=== PATIENT | male | born 1965 | race African-American/Black ===

== ENCOUNTER 2016-06-01 07:21 | Day surgery (SDC) | payer MEDICARE, BC ==
[~2016-06-01] VITALS: Ht 165.1 cm; Wt 53.1 kg
--- NOTE | 2016-06-01 06:55 | HP ---
ADMIT DATE: 06/01/2016 HISTORY OF PRESENT ILLNESS: The patient is referred by Dr. Rasta Lerma because of left bloody nipple discharge. The patient states that this has been going on for sometimes. He has had gynecomastia but not had this bleeding. Not sure exactly how long this has been going on. He did have a mammogram which showed prominent masses and ducts in the left breast and has gynecomastia on the right. Sonogram showed the same. The patient is referred now for treatment of this. PAST MEDICAL HISTORY: Shows normal childhood diseases. It is significant in that he has been on dialysis for about 32 years and has had a kidney transplant which worked for a while but does not anymore and now he is on hemodialysis with his right arm. The patient otherwise is doing relatively well. ALLERGIES: He does have allergies to IODINE, VANCOMYCIN, AND HYDRALAZINE. PAST SURGICAL HISTORY: Otherwise was related to the surgery of the kidney transplant, etc. FAMILY HISTORY: Noncontributory. It should be noted that he does take medicine for his heart and has been on warfarin, but is not on it now and only takes aspirin per day now. SOCIAL HISTORY: Shows he has 2 children, alive and well. They are in their 20s. He used to smoke casually, not any more. He does not drink and does not use illicit drugs. PHYSICAL EXAMINATION: GENERAL: Shows an alert male, small stature, in no acute distress. HEAD, EYES, NOSE, AND THROAT: Grossly normal. LUNGS: Clear bilaterally to auscultation. HEART: About a 2/3 systolic murmur heard, greatest at the mitral valve area. It was not heard at the aortic area. EXTREMITIES: Negative except for the scars of previous surgery and the dilated veins of the right arm where he has dialysis. Grossly normal except for the right upper extremity. ABDOMEN: Grossly normal, no organomegaly, no hernias noted. BREASTS: Examination of the right breast shows a mass which appears to be soft and round and I think it is gynecomastia. On the left, there is bloody nipple discharge coming out of the nipple with a drop or two, and he does have a mass there. There is no tenderness, but is hard, more firm and did not feel like the gynecomastia on the right. IMPRESSION: 1. End-stage renal failure. 2. Gynecomastia. 3. Mass, left breast with discharge. 4. Heart murmur, etiology and consequence not determined. ROYER HADDAD MD DR: DEION/lelo JOB#: [id number] / [id number]
[~2016-06-01 07:21] MED LIST: ASPI-482 PO; CALC667C6 PO; CARV12.52 PO; CEPH-264 PO; CEPH500C PO; FENTANYL PF 100 MCG/2 ML VIAL. IV PRN; HYDROMORPHONE 2 MG/ML VIAL. IV PRN; IV RINGERS,LACTATED 1000ML 1,000 ML IV SCH; LIDOCAINE 1% 1 ML SYRINGE. ID PRN; METO25TA2 PO; METO25TA9 PO; MORPHINE SULFATE 2 MG/ML DISP.SYRIN. IV PRN; ONDANSETRON PF 4 MG/2 ML VIAL. IV PRN; OXYC-250 PO; PROCHLORPERAZINE 10 MG/2 ML VIAL. IV PRN; VIT1CAPS PO; VIT1TABL57 PO; WARF10TA6 PO
[2016-06-01] MEDS ORDERED: FAMOTIDINE 20 MG/2 ML VIAL ONE (07:33)
[2016-06-01] MEDS ORDERED: FENTANYL PF 100 MCG/2 ML VIAL. ONE (07:33)
[2016-06-01] MEDS ORDERED: PROPOFOL 20 ML IV ONE (07:33)
[2016-06-01] MEDS ORDERED: ROCURONIUM 50 MG/5 ML VIAL. ONE (07:33)
[2016-06-01] MEDS ORDERED: LIDOCAINE 2% 100 MG/5 ML DISP.SYRIN. ONE (07:33)
[2016-06-01] MEDS ORDERED: ONDANSETRON PF 4 MG/2 ML VIAL. ONE (07:33)
[2016-06-01] MEDS ORDERED: CEFAZOLIN 1GM IVPB FOR OMNI 50 ML IV ONE (08:00)
[2016-06-01] MEDS ORDERED: IV NORMAL SALINE 1000ML BAG 1,000 ML IV SCH (08:45)
--- NOTE | 2016-06-01 08:46 | PDOC ---
SURGICAL PROGRESS NOTE Subjective No new changes in dictated H+P Vital Signs Vital Signs Date Time Temp Pulse Resp B/P Pulse Ox O2 Delivery O2 Flow Rate FiO2 06/01/16 08:34 98.0 62 18 140/84 100 Room Air 98.0 ROYER HADDAD MD Jun 01, 2016 08:46
--- NOTE | 2016-06-01 08:47 | PDOC ---
SURGICAL PROGRESS NOTE Subjective Surgeon.....................................Scar Pre-op diagnosis..........................left breast mass with discharge Post-op diagnosis.......................LEFT BREAST MASS Anesthesia.................................general procedure...................................left MALE mastectomy drains........................................1/4 INCH PEARL blood loss..................................20CC fluids.........................................see anesthesia condition...................................satisfactory Vital Signs Vital Signs Date Time Temp Pulse Resp B/P Pulse Ox O2 Delivery O2 Flow Rate FiO2 06/01/16 08:34 98.0 62 18 140/84 100 Room Air 98.0 ROYER HADDAD MD Jun 01, 2016 08:47
[2016-06-01 08:55] LABS: BASO % 1 % (0-3); EOS % 1 % (0-3); HEMATOCRIT 40.5 % (39.0-53.0); HEMOGLOBIN 12.9 g/dL (13.0-17.5); LYMPH # 0.6 x10^3/uL (1.0-4.8); LYMPH % 11 % (24-48); MEAN CORPUSCULAR HEMOGLOBIN 33 pg (25-35); MEAN CORPUSCULAR HGB CONC 32 g/dL (31-37); MEAN CORPUSCULAR VOLUME 104 fL (79-100); MONO % 6 % (0-9); NEUT % 81 % (31-73); PLATELET COUNT 128 x10^3/uL (140-400); RED BLOOD COUNT 3.88 x10^6/uL (4.30-5.70); RED CELL DISTRIBUTION WIDTH 17.3 % (11.5-14.5); WHITE BLOOD COUNT 5.5 x10^3/uL (4.0-11.0)
[2016-06-01 09:10] LABS: CREATININE 6.1 mg/dL (0.7-1.3); GFR 11.9; POTASSIUM 3.8 mmol/L (3.5-5.1)
[2016-06-01 09:13] LABS: ALBUMIN 3.6 g/dL (3.4-5.0); ALBUMIN/GLOBULIN RATIO 0.7 (1.0-1.7); TOTAL BILIRUBIN 0.5 mg/dL (0.2-1.0); TOTAL PROTEIN 8.7 g/dL (6.4-8.2)
[2016-06-01] MEDS ORDERED: GLYCOPYRROLATE 1 MG/5 ML VIAL. ONE ×2 (10:33→10:34)
[2016-06-01] MEDS ORDERED: NEOSTIGMINE METHYLSULFATE 5 MG/5 ML SYRINGE. ONE (10:34)
[2016-06-01] MEDS ORDERED: SEVOFLURANE 31 TO 60 MINUTES. IH ONE (10:34)
[2016-06-01] MEDS: FENTANYL PF 100 MCG/2 ML VIAL. IV PRN ×2 (11:27→11:46)
[2016-06-01] MEDS ORDERED: HYDROCODONE/APAP 5/325MG TABLET. PO ONE (11:45)
[2016-06-01] MEDS ORDERED: HYDR-2762 PO (11:58)
[2016-06-01 12:45] VITALS: BP 114/65
--- NOTE | 2016-06-02 01:21 | OP ---
DATE OF SURGERY: SURGEON: Fili Haddad MD PREOPERATIVE DIAGNOSIS: Tumor, left breast. Etiology not determined with nipple discharge. POSTOPERATIVE DIAGNOSIS: Tumor, left breast. Etiology not determined with nipple discharge. ANESTHESIA: General. PROCEDURE: Excision of male breast on the left. ANESTHESIA: General. TECHNIQUE: Under general anesthesia, the patient was properly prepped and draped in routine fashion. The patient had a mass of the left breast laterally. He also had blood in nipple discharge. As such, I spoke with him, and he understood we may remove the mass and the whole breast if we could not get the mass out without that. As such, an incision was made in circumareolar fashion from the 9 o'clock to the 3 o'clock position and then taken laterally about a couple of inches. We did this with a 15 blade. We then went through the skin into the subcutaneous. We then used Metzenbaum scissors and also Silvia retractors to retract away the skin edges to define the mass and the breast tissue. The mass was dark in color and with the inferior lateral portion of the left breast. As such, it did not make sense to leave this in, and so we decided we remove the whole breast since it was not very big being a male breast. We then used Metzenbaum scissors and cautery to divide the breast tissue and the mass from the surrounding tissues. There was more bleeding than normal as the patient is a dialysis patient. We had to cauterize some of the bleeders from the pectoralis muscle and also suture ligated one artery coming in laterally. We then slowly removed the breast and then on the underside of the nipple, I excised the breast so that there would be enough tissue, so it would not have gangrene there. As such, we slowly removed all of the breast tissue totally and then sent it to the lab. The resultant defect was inspected. Because of the space, we decided to put a quarter-inch Chandrika drain there. We then sutured the nipple down to the pectoralis major muscle and then had the drain in place and then closed the subcutaneous with interrupted 4-0 Vicryl, and the skin was closed using a subcuticular 5-0 Vicryl. The procedure was terminated and a sterile dressing was applied. Blood loss was probably 15 to 20 mL. Drain was a quarter-inch Chandrika drain. Fluids given can be obtained from the anesthesia sheet. The condition of the patient is satisfactory as he is returned to the recovery room. FILI HADDAD MD DR: DEION/lelo JOB#: [id number] / [id number]
--- NOTE | 2016-06-03 14:43 | PATHOLOGY ---
PATHOLOGY REPORT * * * * * * * * FINAL DIAGNOSIS: Breast tissue, breast mass excision: - DUCTAL CARCINOMA IN SITU PAPILLARY/CRIBRIFORM TYPE, INTERMEDIATE GRADE. - DCIS IS WITHIN 0.1 CM OF THE CLOSEST INKED MARGIN. - Gynecomastia. Clinical History: Palpable mass Radiologic Finding: Radiologic finding, Other: Unknown Procedure: Excision without wire-guided localization Lymph Node Sampling: No lymph nodes present Specimen Laterality: Left Tumor Site: Not specified: . Size of DCIS: Estimated Size (extent) of DCIS is at least: 30 mm Number of blocks with DCIS: 3 Number of blocks examined: 6 Histologic Type: Ductal carcinoma in situ. Classified as Tis (DCIS) or Tis (Paget). Architectural Patterns: Cribriform Papillary Nuclear Grade: Grade II (intermediate) Necrosis: Not identified: . Margins: Margins uninvolved by DCIS Distance from closest margin is < 1 mm Distance from closest margin cannot be assessed: Specimen not oriented. Treatment Effect: No known presurgical therapy Microcalcifications: Not identified: . Lymph Nodes: Lymph nodes not present in the specimen Micro / Macro Metastases Dudley Nodes: Dudley lymph node biopsy not performed Estrogen Receptor: Pending: . Progesterone Receptor: Pending: . Primary Tumor (pT): pTis: Ductal carcinoma in situ Regional Lymph Nodes (pN): Category (pN): pNX: Regional lymph nodes cannot be assessed Distant Metastasis (pM): Not applicable: . Additional Pathologic Findings: Gynecomastia. COMMENT: Sections of the left breast mass excision show intermediate grade ductal carcinoma in situ of papillary/cribriform type arising within a background of gynecomastia. DCIS in multiple foci is within 0.1 cm of the closest inked margin. DCIS measures up to 3.0 cm and is present in three of the six tissue blocks. There is no evidence of invasive carcinoma. Breast prognostic studies will be obtained, the results of which will be reported separately. The case is also examined by Dr. Mona Ochoa, who concurs with the diagnosis. (EVANSM:; d/t: 06/02/16) REPORT ELECTRONICALLY SIGNED BY: Kimo Douglas M.D. DATE/TIME: 06/03/2016 14:42 * * * * * * * * GROSS PATHOLOGY: The specimen is received in formalin labeled "Isac Ohara left breast mass". Received is a 15 g unoriented segment of yellow-severino fibroadipose tissue measuring 6.1 x 4.1 x 1.2 cm in greatest dimensions. The surgical margin is inked. Sectioning reveals pink-severino to white-severino, fibrous cut surfaces displaying several cystic-like structures ranging in size from 0.2 to 0.5 cm filled with clear mucoid material. The specimen is submitted representatively in cassettes A1 through A6. The cold ischemic time and time in formalin are not provided. The time out of formalin is 9:51 PM on 06/04/2016. (CAA; 06/01/2016) INITIAL CPT CODE(S): A; 78087, 34372(2) Professional services performed [place] [facility] [place] [address] Technical services performed by [facility] at [address] [place] [address] [address] [address]. SPECIMEN(S) RECEIVED: A.Left breast mass CLINICAL HISTORY: Left breast mass with discharge, gynecomastia PATIENT: ISAC OHARA /AGE: 104/12/1965 (Age: 51) PATIENT #: [id number] ALT CASE #: SPECIMEN COLLECTION DATE: 06/01/2016 SPECIMEN RECEIVED DATE: 06/01/2016 [facility] - [address] [place] [address] - PHONE: [phone] * * * END OF REPORT * * *
== END 2016-06-01 13:34 | disposition home or self-care (01) ==
LOC: SURG 07:21 → MERGE 09:00 → SURG 13:34
PROVIDERS: ATTEND Specialist
DX: D49.3 Neoplasm of unspecified behavior of breast (principal); N64.52 Nipple discharge; N62 Hypertrophy of breast; I10 Essential (primary) hypertension; F41.9 Anxiety disorder, unspecified; Z90.49 Acquired absence of other specified parts of digestive tract; Z87.442 Personal history of urinary calculi; Z79.01 Long term (current) use of anticoagulants
CPT/HCPCS: 19303; 36415; 80053; 85027; 85610; J0690; J2405; J2704; J2710; J3010; J3490; S0028

== ENCOUNTER 2016-07-13 09:57 | Day surgery (SDC) | payer MEDICARE ==
--- NOTE | 2016-07-12 17:21 | PREOP HP ---
DATE OF SERVICE: 07/13/2016 HISTORY OF PRESENT ILLNESS: The history has not changed from his previous surgery other than he in fact did have an excision of a right breast mass, which proved to be carcinoma in situ. We went over the results and the pathology and this is what he has. He is still on dialysis and has all of the same problems that he had previously. We did contact an oncologist and they suggested a simple mastectomy, not any axillary dissection or sentinel node biopsy. As such, this is what is plan. PAST MEDICAL HISTORY: Shows normal childhood diseases. He has been on hemodialysis for 32 years and has had kidney transplant once or twice. Apparently, he had dialysis presently. Otherwise, he is alert and doing well. ALLERGIES: HE IS ALLERGIC TO IODINE, VANCOMYCIN, AND HYDRALAZINE. PAST SURGICAL HISTORY: Includes kidney transplant and also excision of a left breast mass and multiple procedures for hemodialysis access. FAMILY HISTORY: Basically noncontributory. MEDICATIONS: He does take medicines for his heart, had been on warfarin, but is not on it now and has stopped the aspirin also. SOCIAL HISTORY: Shows that he has had two children, who are in their 20s now. He used to smoke casually, but not anymore. He does not drink and does not use illicit drugs. PHYSICAL EXAMINATION: GENERAL: Shows an alert male, in no acute distress. HEAD, EYES, EARS, NOSE, AND THROAT: Grossly normal. CHEST: Clear bilaterally to auscultation. HEART: Still had 3/6 systolic murmur heard greatest at the mitral area. EXTREMITIES: Were negative except for the large right arm secondary to the hemodialysis and the venous engorgement. Otherwise, unremarkable. ABDOMEN: Was negative and the breast unremarkable except for a gynecomastia on the right and on the left, he has a scar of the previous surgery. IMPRESSION: 1. Renal failure. 2. In situ cancer of the left breast. ROYER HADDAD MD DR: DEION/lelo JOB#: [id number] / [id number]
[~2016-07-13 09:57] MED LIST changes: +ALPR1TAB6 PO; +CLON2TAB2 PO; +DIPH25CA58 PO; +HYDR-2762 PO; +IV NORMAL SALINE 1000ML BAG 1,000 ML IV ONE; -MORPHINE SULFATE 2 MG/ML DISP.SYRIN. IV PRN; +SEVE800T9 PO
[2016-07-13] MEDS ORDERED: FAMOTIDINE 20 MG/2 ML VIAL ONE (10:11)
[2016-07-13] MEDS ORDERED: LIDOCAINE 2% 100 MG/5 ML SYRINGE. ONE (10:11)
[2016-07-13] MEDS ORDERED: PROPOFOL 20 ML IV ONE (10:11)
[2016-07-13] MEDS ORDERED: DEXAMETHASONE SOD PHOS 20 MG/5 ML VIAL. ONE (10:11)
[2016-07-13] MEDS ORDERED: ONDANSETRON PF 4 MG/2 ML VIAL. ONE (10:11)
[2016-07-13] MEDS ORDERED: FENTANYL PF 100 MCG/2 ML VIAL. ONE (10:14)
[2016-07-13] MEDS ORDERED: ROCURONIUM 50 MG/5 ML VIAL. ONE (10:14)
[2016-07-13 10:47] LABS: BASO % 1 % (0-3); EOS % 1 % (0-3); HEMATOCRIT 38.9 % (39.0-53.0); HEMOGLOBIN 13.3 g/dL (13.0-17.5); LYMPH # 0.7 x10^3/uL (1.0-4.8); LYMPH % 13 % (24-48); MEAN CORPUSCULAR HEMOGLOBIN 34 pg (25-35); MEAN CORPUSCULAR HGB CONC 34 g/dL (31-37); MEAN CORPUSCULAR VOLUME 100 fL (79-100); MONO % 8 % (0-9); NEUT % 77 % (31-73); PLATELET COUNT 128 x10^3/uL (140-400); RED BLOOD COUNT 3.89 x10^6/uL (4.30-5.70); RED CELL DISTRIBUTION WIDTH 15.4 % (11.5-14.5); WHITE BLOOD COUNT 5.3 x10^3/uL (4.0-11.0)
[2016-07-13 10:55] LABS: CALCIUM 8.7 mg/dL (8.5-10.1); POTASSIUM 4.4 mmol/L (3.5-5.1)
[2016-07-13 11:02] LABS: ALBUMIN 3.3 g/dL (3.4-5.0); ALBUMIN/GLOBULIN RATIO 0.7 (1.0-1.7); CREATININE 6.8 mg/dL (0.7-1.3); GFR 10.5; TOTAL BILIRUBIN 0.4 mg/dL (0.2-1.0); TOTAL PROTEIN 8.3 g/dL (6.4-8.2)
--- NOTE | 2016-07-13 11:08 | PDOC ---
SURGICAL PROGRESS NOTE Subjective No change in dictated H&P. Vital Signs Vital Signs Date Time Temp Pulse Resp B/P Pulse Ox O2 Delivery O2 Flow Rate FiO2 07/13/16 10:37 98.5 78 97 98.5 07/13/16 10:31 99/62 07/13/16 10:27 20 Labs Laboratory Tests Test 07/13/16 10:32 White Blood Count 5.3x10^3/uL (4.0-11.0) Red Blood Count 3.89x10^6/uL (4.30-5.70) Hemoglobin 13.3g/dL (13.0-17.5) Hematocrit 38.9% (39.0-53.0) Mean Corpuscular Volume 100fL (79-100) Mean Corpuscular Hemoglobin 34pg (25-35) Mean Corpuscular Hemoglobin Concent 34g/dL (31-37) Red Cell Distribution Width 15.4% (11.5-14.5) Platelet Count 128x10^3/uL (140-400) Neutrophils (%) (Auto) 77% (31-73) Lymphocytes (%) (Auto) 13% (24-48) Monocytes (%) (Auto) 8% (0-9) Eosinophils (%) (Auto) 1% (0-3) Basophils (%) (Auto) 1% (0-3) Neutrophils # (Auto) 4.1x10^3uL (1.8-7.7) Lymphocytes # (Auto) 0.7x10^3/uL (1.0-4.8) Monocytes # (Auto) 0.4x10^3/uL (0.0-1.1) Eosinophils # (Auto) 0.1x10^3/uL (0.0-0.7) Basophils # (Auto) 0.0x10^3/uL (0.0-0.2) Sodium Level 139mmol/L (136-145) Potassium Level 4.4mmol/L (3.5-5.1) Chloride Level 101mmol/L (98-107) Carbon Dioxide Level 29mmol/L (21-32) Anion Gap 9 (6-14) Blood Urea Nitrogen 13mg/dL (8-26) Creatinine 6.8mg/dL (0.7-1.3) Estimated GFR (Cockcroft-Gault) 10.5 BUN/Creatinine Ratio 2 (6-20) Glucose Level 92mg/dL (70-99) Calcium Level 8.7mg/dL (8.5-10.1) Total Bilirubin 0.4mg/dL (0.2-1.0) Aspartate Amino Transf (AST/SGOT) 12U/L (15-37) Alanine Aminotransferase (ALT/SGPT) 13U/L (16-63) Alkaline Phosphatase 137U/L (46-116) Total Protein 8.3g/dL (6.4-8.2) Albumin 3.3g/dL (3.4-5.0) Albumin/Globulin Ratio 0.7 (1.0-1.7) Laboratory Tests Test 07/13/16 10:32 White Blood Count 5.3x10^3/uL (4.0-11.0) Red Blood Count 3.89x10^6/uL (4.30-5.70) Hemoglobin 13.3g/dL (13.0-17.5) Hematocrit 38.9% (39.0-53.0) Mean Corpuscular Volume 100fL (79-100) Mean Corpuscular Hemoglobin 34pg (25-35) Mean Corpuscular Hemoglobin Concent 34g/dL (31-37) Red Cell Distribution Width 15.4% (11.5-14.5) Platelet Count 128x10^3/uL (140-400) Neutrophils (%) (Auto) 77% (31-73) Lymphocytes (%) (Auto) 13% (24-48) Monocytes (%) (Auto) 8% (0-9) Eosinophils (%) (Auto) 1% (0-3) Basophils (%) (Auto) 1% (0-3) Neutrophils # (Auto) 4.1x10^3uL (1.8-7.7) Lymphocytes # (Auto) 0.7x10^3/uL (1.0-4.8) Monocytes # (Auto) 0.4x10^3/uL (0.0-1.1) Eosinophils # (Auto) 0.1x10^3/uL (0.0-0.7) Basophils # (Auto) 0.0x10^3/uL (0.0-0.2) Sodium Level 139mmol/L (136-145) Potassium Level 4.4mmol/L (3.5-5.1) Chloride Level 101mmol/L (98-107) Carbon Dioxide Level 29mmol/L (21-32) Anion Gap 9 (6-14) Blood Urea Nitrogen 13mg/dL (8-26) Creatinine 6.8mg/dL (0.7-1.3) Estimated GFR (Cockcroft-Gault) 10.5 BUN/Creatinine Ratio 2 (6-20) Glucose Level 92mg/dL (70-99) Calcium Level 8.7mg/dL (8.5-10.1) Total Bilirubin 0.4mg/dL (0.2-1.0) Aspartate Amino Transf (AST/SGOT) 12U/L (15-37) Alanine Aminotransferase (ALT/SGPT) 13U/L (16-63) Alkaline Phosphatase 137U/L (46-116) Total Protein 8.3g/dL (6.4-8.2) Albumin 3.3g/dL (3.4-5.0) Albumin/Globulin Ratio 0.7 (1.0-1.7) ROYER HADDAD MD Jul 13, 2016 11:08
--- NOTE | 2016-07-13 11:11 | PDOC ---
SURGICAL PROGRESS NOTE Subjective Op Note: Surgeon............................................Scar Pre op diag.......................................cancer left breast Post op diag.....................................same Anesthesia.......................................general Procedure........................................simple mastectomy on left Drains..............................................#15 Ashwin drain Fluids..............................................see anesthesia sheet Blood loss.......................................15cc Condition.........................................fair Vital Signs Vital Signs Date Time Temp Pulse Resp B/P Pulse Ox O2 Delivery O2 Flow Rate FiO2 07/13/16 10:37 98.5 78 97 98.5 07/13/16 10:31 99/62 07/13/16 10:27 20 Labs Laboratory Tests Test 07/13/16 10:32 White Blood Count 5.3x10^3/uL (4.0-11.0) Red Blood Count 3.89x10^6/uL (4.30-5.70) Hemoglobin 13.3g/dL (13.0-17.5) Hematocrit 38.9% (39.0-53.0) Mean Corpuscular Volume 100fL (79-100) Mean Corpuscular Hemoglobin 34pg (25-35) Mean Corpuscular Hemoglobin Concent 34g/dL (31-37) Red Cell Distribution Width 15.4% (11.5-14.5) Platelet Count 128x10^3/uL (140-400) Neutrophils (%) (Auto) 77% (31-73) Lymphocytes (%) (Auto) 13% (24-48) Monocytes (%) (Auto) 8% (0-9) Eosinophils (%) (Auto) 1% (0-3) Basophils (%) (Auto) 1% (0-3) Neutrophils # (Auto) 4.1x10^3uL (1.8-7.7) Lymphocytes # (Auto) 0.7x10^3/uL (1.0-4.8) Monocytes # (Auto) 0.4x10^3/uL (0.0-1.1) Eosinophils # (Auto) 0.1x10^3/uL (0.0-0.7) Basophils # (Auto) 0.0x10^3/uL (0.0-0.2) Sodium Level 139mmol/L (136-145) Potassium Level 4.4mmol/L (3.5-5.1) Chloride Level 101mmol/L (98-107) Carbon Dioxide Level 29mmol/L (21-32) Anion Gap 9 (6-14) Blood Urea Nitrogen 13mg/dL (8-26) Creatinine 6.8mg/dL (0.7-1.3) Estimated GFR (Cockcroft-Gault) 10.5 BUN/Creatinine Ratio 2 (6-20) Glucose Level 92mg/dL (70-99) Calcium Level 8.7mg/dL (8.5-10.1) Total Bilirubin 0.4mg/dL (0.2-1.0) Aspartate Amino Transf (AST/SGOT) 12U/L (15-37) Alanine Aminotransferase (ALT/SGPT) 13U/L (16-63) Alkaline Phosphatase 137U/L (46-116) Total Protein 8.3g/dL (6.4-8.2) Albumin 3.3g/dL (3.4-5.0) Albumin/Globulin Ratio 0.7 (1.0-1.7) Laboratory Tests Test 07/13/16 10:32 White Blood Count 5.3x10^3/uL (4.0-11.0) Red Blood Count 3.89x10^6/uL (4.30-5.70) Hemoglobin 13.3g/dL (13.0-17.5) Hematocrit 38.9% (39.0-53.0) Mean Corpuscular Volume 100fL (79-100) Mean Corpuscular Hemoglobin 34pg (25-35) Mean Corpuscular Hemoglobin Concent 34g/dL (31-37) Red Cell Distribution Width 15.4% (11.5-14.5) Platelet Count 128x10^3/uL (140-400) Neutrophils (%) (Auto) 77% (31-73) Lymphocytes (%) (Auto) 13% (24-48) Monocytes (%) (Auto) 8% (0-9) Eosinophils (%) (Auto) 1% (0-3) Basophils (%) (Auto) 1% (0-3) Neutrophils # (Auto) 4.1x10^3uL (1.8-7.7) Lymphocytes # (Auto) 0.7x10^3/uL (1.0-4.8) Monocytes # (Auto) 0.4x10^3/uL (0.0-1.1) Eosinophils # (Auto) 0.1x10^3/uL (0.0-0.7) Basophils # (Auto) 0.0x10^3/uL (0.0-0.2) Sodium Level 139mmol/L (136-145) Potassium Level 4.4mmol/L (3.5-5.1) Chloride Level 101mmol/L (98-107) Carbon Dioxide Level 29mmol/L (21-32) Anion Gap 9 (6-14) Blood Urea Nitrogen 13mg/dL (8-26) Creatinine 6.8mg/dL (0.7-1.3) Estimated GFR (Cockcroft-Gault) 10.5 BUN/Creatinine Ratio 2 (6-20) Glucose Level 92mg/dL (70-99) Calcium Level 8.7mg/dL (8.5-10.1) Total Bilirubin 0.4mg/dL (0.2-1.0) Aspartate Amino Transf (AST/SGOT) 12U/L (15-37) Alanine Aminotransferase (ALT/SGPT) 13U/L (16-63) Alkaline Phosphatase 137U/L (46-116) Total Protein 8.3g/dL (6.4-8.2) Albumin 3.3g/dL (3.4-5.0) Albumin/Globulin Ratio 0.7 (1.0-1.7) ROYER HADDAD MD Jul 13, 2016 11:11
[2016-07-13 11:28] LABS: INR 1.1 (0.8-1.1); PROTHROMBIN TIME PATIENT 13.5 SEC (11.7-14.0)
[2016-07-13] MEDS ORDERED: CEFAZOLIN 1GM IVPB FOR OMNI 50 ML IV ONE (11:33)
[2016-07-13] MEDS ORDERED: PHENYLEPHRINE in 0.9% NACL PF 1 MG/10 ML DISP.SYRIN. IV ONE (11:42)
[2016-07-13] MEDS ORDERED: GLYCOPYRROLATE 1 MG/5 ML VIAL. ONE (12:00)
[2016-07-13] MEDS ORDERED: NEOSTIGMINE METHYLSULFATE 5 MG/5 ML SYRINGE. ONE (12:00)
[2016-07-13] MEDS ORDERED: SEVOFLURANE 61 TO 120 MINUTES. IH ONE (12:26)
[2016-07-13] MEDS: FENTANYL PF 100 MCG/2 ML VIAL. IV PRN ×4 (12:48→13:30)
[2016-07-13] MEDS ORDERED: CEFAZOLIN 1GM IVPB FOR OMNI. IV ONE ×2 (13:00→13:49)
[2016-07-13] MEDS ORDERED: HYDROCODONE/APAP 5/325MG TABLET. PO ONE (13:45)
[2016-07-13] MEDS: MORPHINE SULFATE 2 MG/ML DISP.SYRIN. IV PRN ×2 (14:00→14:15)
[2016-07-13] MEDS ORDERED: HYDR-2666 PO (14:12)
--- NOTE | 2016-07-13 14:22 | OP ---
DATE OF SURGERY: 07/13/2016 SURGEON: Fili Haddad MD. PREOPERATIVE DIAGNOSIS: Carcinoma of the left breast. POSTOPERATIVE DIAGNOSIS: Carcinoma of the left breast. ANESTHESIA: General. PROCEDURE: Simple mastectomy. TECHNIQUE: Under general anesthesia, the patient was properly prepped and draped in a routine fashion. A fusiform incision was made in a transverse fashion encompassing the old incision and the nipple. We went around this with a 15-blade making pretty wide margins. We then went completely through the subcutaneous down to the fascia with cautery. We then pulled it up with Mary Ann clamps superiorly and then inferiorly and developed a plane subcutaneous taking all of the breast tissue down to the fascia. We then grasped the tissue to be removed medially and pulled it laterally, and slowly using cautery the tissue from the pectoralis major muscle fascia and taking all of the tissue therein. We slowly removed this. Two to three small bleeders were cauterized, and we slowly removed the mass, and we did not enter the previous surgical site. We completely removed this and sent it to the lab after we put 2-0 silk suture in the lateral aspect of it. We then developed flaps as stated before superiorly and medially and laterally and inferiorly. We then placed a 15-Ashwin drain, brought it out through a stab wound, and sutured it in place using 2-0 silk. We then cut the catheter, so it fit into this area where the wound was going to be closed, and we irrigated the wound with sterile water and then approximated the subcutaneous and deep dermis using interrupted 4-0 and 3-0 Vicryl. The skin was closed using skin stapler, and the procedure was terminated as a sterile dressing was applied. The appropriate apparatus was placed on the catheter, and the bulb was then tied in place using #1 silk suture. This having been done, the procedure was terminated. Sterile dressing was applied. Blood loss was probably 10 mL or so. Fluids given can be obtained from the anesthesia sheet. The drain was a 15-Ashwin drain, and the condition of the patient is satisfactory as he was returned to the Recovery Room. FILI HADDAD MD DR: DEION/lelo JOB#: [id number] / [id number]
[2016-07-13 14:49] VITALS: BP 126/54
== END 2016-07-13 15:18 | disposition home or self-care (01) ==
LOC: SURG 09:57
PROVIDERS: ATTEND Specialist
DX: C50.922 Malignant neoplasm of unspecified site of left male breast (principal); I10 Essential (primary) hypertension; F41.9 Anxiety disorder, unspecified; Z90.49 Acquired absence of other specified parts of digestive tract; Z87.442 Personal history of urinary calculi; Z79.01 Long term (current) use of anticoagulants
CPT/HCPCS: 19303; 36415; 80053; 85027; 85610; J0690; J0780; J1100; J2270; J2370; J2405; J2704; J2710; J3010; J3490; S0028

== ENCOUNTER → 2017-02-03 | Day surgery (SDC) | payer MEDICARE ==
[~2017-02-03] MED LIST changes: -ALPR1TAB6 PO; -ASPI-482 PO; -CALC667C6 PO; -CARV12.52 PO; -CEPH-264 PO; -CEPH500C PO; -CLON2TAB2 PO; -DIPH25CA58 PO; -FENTANYL PF 100 MCG/2 ML VIAL. IV PRN; -HYDR-2762 PO; -HYDROMORPHONE 2 MG/ML VIAL. IV PRN; -IV NORMAL SALINE 1000ML BAG 1,000 ML IV ONE; -IV RINGERS,LACTATED 1000ML 1,000 ML IV SCH; -LIDOCAINE 1% 1 ML SYRINGE. ID PRN; +LIDOCAINE 1%/EPI 1:100,000 20 ML VIAL.; -METO25TA2 PO; -METO25TA9 PO; -ONDANSETRON PF 4 MG/2 ML VIAL. IV PRN; -OXYC-250 PO; -PROCHLORPERAZINE 10 MG/2 ML VIAL. IV PRN; -SEVE800T9 PO; -VIT1CAPS PO; -VIT1TABL57 PO; -WARF10TA6 PO
[2017-02-03 09:44] LABS: ADD MAN DIFF? NO
[2017-02-03 09:48] LABS: BASO % 1 % (0-3); EOS % 1 % (0-3); HEMOGLOBIN 13.3 g/dL (13.0-17.5); LYMPH # 0.9 x10^3/uL (1.0-4.8); LYMPH % 17 % (24-48); MEAN CORPUSCULAR HEMOGLOBIN 32 pg (25-35); MEAN CORPUSCULAR HGB CONC 32 g/dL (31-37); MEAN CORPUSCULAR VOLUME 99 fL (79-100); MONO % 7 % (0-9); NEUT % 75 % (31-73); PLATELET COUNT 143 x10^3/uL (140-400); RED BLOOD COUNT 4.14 x10^6/uL (4.30-5.70); RED CELL DISTRIBUTION WIDTH 14.8 % (11.5-14.5); WHITE BLOOD COUNT 5.2 x10^3/uL (4.0-11.0)
[2017-02-03 09:58] LABS: PROTHROMBIN TIME PATIENT 13.1 SEC (11.7-14.0)
[2017-02-03 09:59] LABS: ANION GAP 6 (6-14); BLOOD UREA NITROGEN 12 mg/dL (8-26); BUN/CREATININE RATIO 2 (6-20); CARBON DIOXIDE 35 mmol/L (21-32); CHLORIDE 98 mmol/L (98-107); CREATININE 5.5 mg/dL (0.7-1.3); GFR 13.4; GLUCOSE 110 mg/dL (70-99); POTASSIUM 4.1 mmol/L (3.5-5.1); SODIUM 139 mmol/L (136-145)
[2017-02-03 10:05] LABS: ALBUMIN 3.4 g/dL (3.4-5.0); ALBUMIN/GLOBULIN RATIO 0.6 (1.0-1.7); ALK PHOS 145 U/L (46-116); ALT (SGPT) 14 U/L (16-63); AST (SGOT) 14 U/L (15-37); TOTAL BILIRUBIN 0.4 mg/dL (0.2-1.0); TOTAL PROTEIN 8.7 g/dL (6.4-8.2)
[2017-02-03] MEDS: LIDOCAINE 2%/EPI 1:100,000 20 ML VIAL. IJ ×2 (10:45→11:20)
== END | disposition home or self-care (01) ==
LOC: SURG 09:17
DX: L72.0 Epidermal cyst (principal); L82.1 Other seborrheic keratosis; E07.9 Disorder of thyroid, unspecified; I12.9 Hypertensive chronic kidney disease with stage 1 through stage 4 chronic kidney disease, or unspecified chronic kidney disease; N18.9 Chronic kidney disease, unspecified; F41.9 Anxiety disorder, unspecified; F17.200 Nicotine dependence, unspecified, uncomplicated; Z90.49 Acquired absence of other specified parts of digestive tract; Z98.890 Other specified postprocedural states; Z88.1 Allergy status to other antibiotic agents; Z87.39 Personal history of other diseases of the musculoskeletal system and connective tissue; Z91.041 Radiographic dye allergy status
CPT/HCPCS: 11404; 36415; 80053; 85025; 85610; 88304; 88305; J3490

== ENCOUNTER 2017-11-28 01:44 | Inpatient (IN) | payer MEDICARE ==
[~2017-11-28] VITALS: Ht 165.1 cm; Wt 56.2 kg
[~2017-11-28 01:44] MED LIST changes: +ALPR1TAB6 PO; +ASPI-482 PO; +CALC667C6 PO; +CARV12.52 PO; +CEPH-264 PO; +CEPH500C PO; +CLON2TAB9 PO; +DIPH25CA58 PO; +HYDR-2758 PO; +HYDR-2762 PO; -LIDOCAINE 1%/EPI 1:100,000 20 ML VIAL.; +METO-239 PO; +METO25TA2 PO; +OXYC-328 PO; +SEVE800T9 PO; +VIT1CAPS PO; +VIT1TABL57 PO; +WARF10TA40 PO
[2017-11-28] MEDS ORDERED: ONDANSETRON PF 4 MG/2 ML VIAL. IV ONE (02:30)
[2017-11-28] MEDS ORDERED: MORPHINE SULFATE 10 MG/ML VIAL. ONE (02:32)
[2017-11-28] MEDS ORDERED: MORPHINE SULFATE 10 MG/ML VIAL. IV ONE (02:45)
--- NOTE | 2017-11-28 03:36 | RAD ---
INDICATION: LEFT HAND PAIN POST FALL, UNABLE TO EXTEND FINGERS WELL COMPARISON: None. IMPRESSION: Left hand: 3 views obtained. There are couple of lucent foci within the third and fourth proximal phalanx distally which could be secondary to small lytic lesions in the area such as cyst or enchondroma but nonspecific appearance. Severe calcific atherosclerosis. Degenerative changes is identified within the wrist and multiple joints of the hands. Limited evaluation of carpal bones secondary to overlap. Ossific density is seen both anterior and posterior to the proximal carpal row on the lateral view. Could be secondary to calcifications in the soft tissues or degenerative changes unless there is point tenderness to suggest small fracture fragment. Flexion is seen at the fifth proximal interphalangeal joint with overlap within the area. Would correlate as to whether this is a fixed defect or whether this is just the way the patient was holding their hand at the time of exam to ensure that this is not secondary to tendinous injury with fixed flexion defect. Electronically signed by: Colton Winn MD (11/28/2017 3:33 AM) [id number]
--- NOTE | 2017-11-28 03:41 | PHYS DOC ---
Past Medical History Past Medical History: Cancer, Hypertension, Renal Disease Additional Past Medical Histor: LUPUS Past Surgical History: Cancer Surgery Additional Past Surgical Histo: DIALYSIS SHUNT RIGHT ARM Alcohol Use: None Drug Use: None Adult General Chief Complaint Chief Complaint: KNEE INJURY [facility] HPI Patient is a 52 year old male who presents with left knee injury. Patient states he was riding his grandsons scooter earlier today when he fell. This was not a motorized scooter. Patient subsequently developed significant pain in the left knee along with swelling. The became unable to bear weight due to the pain. He also injured the left pinky in the fall. He denies additional injuries although he does state he struck his head. He did not lose consciousness. The patient is known to have end-stage renal disease and would normally dialyze tomorrow. Review of Systems Review of Systems Constitutional: Denies fever or chills Eyes: Denies HENT: Denies Respiratory: Denies Cardiovascular: No additional information not addressed in HPI GI: Denies : Denies Musculoskeletal: Denies back pain Integument: Denies rash Neurologic: Denies headache Endocrine: Denies polyuria All other systems were reviewed and found to be within normal limits, except as documented in this note. Current Medications Current Medications Current Medications Medications (Trade) Dose Ordered Sig/Leslie Start Time Stop Time Status Last Admin Dose Admin Morphine Sulfate (Morphine Sulfate) 4 mg PRN Q2HR PRN 11/28/17 05:00 11/29/17 04:59 UNV Ondansetron HCl (Zofran) 4 mg PRN Q8HRS PRN 11/28/17 05:00 11/29/17 04:59 UNV Allergies Allergies Allergies Coded Allergies Type Severity Reaction Last Updated Verified Iodinated Contrast- Oral and IV Dye Allergy Intermediate skin burning Yes iodine Allergy Intermediate rash 02/03/17 Yes vancomycin Allergy Intermediate itching 02/03/17 Yes hydralazine Adverse Reaction Intermediate high bp shaking 02/03/17 Yes Physical Exam Physical Exam Constitutional: Well developed, well nourished, moderate distress 2/2 pain HENT: Normocephalic, atraumatic Eyes: PERRLA, EOMI Neck: Normal range of motion, no tenderness, supple Cardiovascular:Heart rate regular rhythm, no murmur Lungs & Thorax: Bilateral breath sounds clear to auscultation Skin: Warm, dry, no erythema Back: No tenderness Extremities: mild ecchymosis to the left small finger and ulnar aspect of the hand. Capillary refill < 2 seconds. Significant effusion to the left knee. Severe pain, unable to range. Unable to extend at the knee. Ecchymosis. 2+ dp pulses in the dorsalis pedis and posterior tibial. Neurologic: Alert and oriented X 3 Psychologic: Affect normal Current Patient Data Vital Signs Vital Signs Date Time Temp Pulse Resp B/P (MAP) Pulse Ox O2 Delivery O2 Flow Rate FiO2 11/28/17 02:33 18 98 Room Air 11/28/17 01:45 97.9 64 197/90 (125) 97.9 EKG EKG [] Radiology/Procedures Radiology/Procedures IMPRESSION: 1. Comminuted acute fracture of the patella with intra-articular involvement. 2. Large lipohemarthrosis. 3. Severe calcific atherosclerosis. 4. Severe osseous demineralization of the distal femur, proximal tibia and fibula with reinforce trabeculation and lucency within the marrow. Could be from severe osteopenia but a marrow infiltrative process is not excluded on this exam given the extent of involvement. If further clarification is desired a follow-up MRI could further evaluate. 5. Soft tissue hematoma. Course & Med Decision Making Course & Med Decision Making Pertinent Labs and Imaging studies reviewed. (See chart for details) Is seen and examined. He has significant deformity to the left knee along with inability to extend the leg at the knee. Plain film images are ordered along with IV pain medications. 04:45: Patient has significant derangement of the knee X Monico early on physical exam. He continues to be unable to extend the leg at the knee joint despite adequate pain control. CT scan results as documented above with patellar fracture. Given his loss of extensor mechanism in the setting of patellar fx, patient will be admitted for orthopedist consult and evaluation. Patient may require surgical intervention with these findings. Nephrology consult also placed as pt will need inpatient dialysis (due today). Pain is currently well controlled. No splint applied. Will allow position of comfort pending ortho evaluation. All results are reviewed and discussed with the patient and his family and all of their questions are answered prior to admission. He is agreeable to the plan of care. Dragon Disclaimer Dragon Disclaimer This electronic medical record was generated, in whole or in part, using a voice recognition dictation system. Departure Departure Referrals: JALEN WADE MD (PCP) NATALI MARIN DO Nov 28, 2017 03:41
[2017-11-28] MEDS ORDERED: MORPHINE SULFATE 4 MG/ML VIAL. IV ONE (03:45)
--- NOTE | 2017-11-28 04:26 | RAD ---
INDICATION: LEFT KNEE PAIN POST FALL COMPARISON: Plain film from earlier same day TECHNIQUE: Axial CT images obtained through the left knee without contrast. One or more of the following individualized dose reduction techniques were utilized for this examination: 1. Automated exposure control; 2. Adjustment of the mA and/or kV according to patient size; 3. Use of iterative reconstruction technique. FINDINGS: Intramedullary fabien at distal femur. Osseous demineralization with lucency seen within the marrow and prominent trabeculation at femur distally. Mildly comminuted and mildly displaced fracture of the patella with articular surface component including of the lateral facet. Large lipohemarthrosis. Subcutaneous hematoma is seen adjacent to patella. Osseous demineralization of the proximal tibia and fibula with prominent trabecula and lucency of marrow. IMPRESSION: 1. Comminuted acute fracture of the patella with intra-articular involvement. 2. Large lipohemarthrosis. 3. Severe calcific atherosclerosis. 4. Severe osseous demineralization of the distal femur, proximal tibia and fibula with reinforce trabeculation and lucency within the marrow. Could be from severe osteopenia but a marrow infiltrative process is not excluded on this exam given the extent of involvement. If further clarification is desired a follow-up MRI could further evaluate. 5. Soft tissue hematoma. Electronically signed by: Colton Winn MD (11/28/2017 4:23 AM) [id number]
[2017-11-28] MEDS ORDERED: ONDANSETRON PF 4 MG/2 ML VIAL. IV PRN (05:00)
[2017-11-28 06:04] VITALS: BP 156/88
[2017-11-28] MEDS: MORPHINE SULFATE 4 MG/ML VIAL. IV PRN ×3 (06:25→10:36)
[2017-11-28 07:00] VITALS: BP 204/100
--- NOTE | 2017-11-28 08:32 | RAD ---
Left knee radiograph 11/28/2017 2:16 AM INDICATION: Left knee swelling, fall COMPARISON: None available. TECHNIQUE: 3 views the left knee are provided. FINDINGS: There is a large lipohemarthrosis. Lucency involving the patella may represent a patellar fracture which appears nondisplaced and non-distracted. Intramedullary fabien is identified in the proximal femur. Tibial plateaus appear intact. Femoral condyles appear intact. Vascular calcifications are present. IMPRESSION: There is a transversely oriented suspected fracture involving the patella with intra-articular extension. There is a large lipohemarthrosis. Electronically signed by: Alexa Meeks MD (11/28/2017 8:28 AM) [id number]
[2017-11-28] MEDS ORDERED: diphenhydrAMINE HCL 25 MG CAPSULE PO PRN (09:15)
[2017-11-28 09:42] LABS: BASO % 0 % (0-3); EOS % 0 % (0-3); HEMATOCRIT 38.1 % (39.0-53.0); HEMOGLOBIN 12.7 g/dL (13.0-17.5); LYMPH # 0.7 x10^3/uL (1.0-4.8); LYMPH % 9 % (24-48); MEAN CORPUSCULAR HEMOGLOBIN 33 pg (25-35); MEAN CORPUSCULAR HGB CONC 33 g/dL (31-37); MEAN CORPUSCULAR VOLUME 98 fL (79-100); MONO # 0.5 x10^3/uL (0.0-1.1); MONO % 6 % (0-9); NEUT # 5.9 x10^3uL (1.8-7.7); NEUT % 84 % (31-73); PLATELET COUNT 127 x10^3/uL (140-400); RED BLOOD COUNT 3.87 x10^6/uL (4.30-5.70); RED CELL DISTRIBUTION WIDTH 14.5 % (11.5-14.5); WHITE BLOOD COUNT 7.1 x10^3/uL (4.0-11.0)
[2017-11-28 09:51] LABS: CREATININE 9.2 mg/dL (0.7-1.3); GFR 7.4; POTASSIUM 5.5 mmol/L (3.5-5.1)
[2017-11-28] MEDS: ALPRAZolam 1 MG TABLET PO SCH ×3 (10:11→19:44)
[2017-11-28] MEDS: CARVEDILOL 12.5 MG TABLET. PO SCH ×2 (10:11→19:45)
[2017-11-28] MEDS: amLODIPine BESYLATE 2.5 MG TABLET PO SCH (10:12)
--- NOTE | 2017-11-28 10:43 | PDOC2 ---
CONSULT Date of Consult Date of Consult DATE: 11/28/17 TIME: 10:38 Reason for Consult Reason for Consult: Left patella fracture Referring Physician Referring Physician: Tamanna Identification/Chief Complaint Chief Complaint Left knee pain Source Source: Patient History of Present Illness Reason for Visit: Patient developed immediate left knee pain, inability ambulate and extend his leg as well as a large swelling in his knee after he was riding a scooter, tripped and fell onto a flexed left knee. His pain is a little bit better with pain medicine. Hurts worse with any movement. It does radiate up and down his leg. He tells me he is unable to put any weight on it. He tells me he is unable to straighten his knee. He also injured his left fifth digit, he has had chronic deformity and poor motion at that digit for years, he has noticed some swelling and bruising in his fingers since he accident Past Medical History Cardiovascular: HTN Pulmonary: No pertinent hx CENTRAL NERVOUS SYSTEM: Other GI: No pertinent hx Heme/Onc: No pertinent hx Hepatobiliary: No pertinent hx Psych: No pertinent hx Musculoskeletal: No pain Rheumatologic: Other Infectious disease: No pertinent hx Renal/: Chronic renal failure Endocrine: Hypothyroidism Past Surgical History Past Surgical History: Appendectomy Social History ALCOHOL: none Drugs: None Current Medications Current Medications Current Medications Morphine Sulfate (Morphine Sulfate) 6 mg 1X ONCE IV Last administered on at 02:33; Start 11/28/17 at 02:45; Stop 11/28/17 at 02:50; Status DC Ondansetron HCl (Zofran) 4 mg 1X ONCE IV Last administered on 11/28/17at 02:38 ; Start 11/28/17 at 02:30; Stop 11/28/17 at 02:50; Status DC Morphine Sulfate (Morphine Sulfate) 10 mg STK-MED ONCE .ROUTE ; Start 11/28/17 at 02:32; Stop 11/28/17 at 02:33; Status DC Morphine Sulfate (Morphine Sulfate) 4 mg 1X ONCE IV Last administered on at 03:49; Start 11/28/17 at 03:45; Stop 11/28/17 at 03:46; Status DC Ondansetron HCl (Zofran) 4 mg PRN Q8HRS PRN IV NAUSEA/VOMITING; Start 11/28/17 at 05:00; Stop 11/29/17 at 04:59 Morphine Sulfate (Morphine Sulfate) 4 mg PRN Q2HR PRN IV PAIN Last administered on 11/28/17at 08:25; Start 11/28/17 at 05:00; Stop 11/29/17 at 04:59 Alprazolam (Xanax) 1 mg TID PO Last administered on 11/28/17at 10:11; Start 01/05 at 10:00 Calcium Acetate (Phoslo) 667 mg TIDWMEALS PO ; Start 11/28/17 at 12:00 Carvedilol (Coreg) 12.5 mg BIDWMEALS PO Last administered on 11/28/17at 10:11; Start 11/28/17 at 10:00 Diphenhydramine HCl (Benadryl) 25 mg PRN QHS PRN PO ITCHING; Start 11/28/17 at 09:15 Acetaminophen/ Hydrocodone Bitart (Lortab 5/325) 1 tab PRN Q4HRS PRN PO MODERATE PAIN; Start 11/28/17 at 09:15 Sevelamer Carbonate (Renvela) 2,400 mg TIDWMEALS PO ; Start 11/28/17 at 12:00 Amlodipine Besylate (Norvasc) 2.5 mg DAILY PO Last administered on 11/28/17at 10 :12; Start 11/28/17 at 09:15 Cefazolin Sodium 50 ml @ 100 mls/hr 1X ONCE IV ; Start 11/28/17 at 10:45; Stop 11/28/17 at 11:14 Active Scripts Active Reported Hydrocodone-Apap 5-325 (Hydrocodone Bit/Acetaminophen) 1 Each Tablet 1 Tab PO Q4HRS PRN Benadryl (Diphenhydramine Hcl) 25 Mg Capsule 1 Cap PO QHS PRN Renvela (Sevelamer Carbonate) 800 Mg Tablet 3 Tab PO TID Alprazolam 1 Mg Tablet 1 Tab PO TID Carvedilol 12.5 Mg Tablet 1 Tab PO BID Phoslo (Calcium Acetate) 667 Mg Capsule 667 Mg PO TIDWMEALS Nephro-Obdulia Rx Tablet (Vit B Cmplx 3/Fa/Vit C/Biotin) 1 Each Tablet 1 Each PO DAILY Allergies Allergies: Coded Allergies: Iodinated Contrast- Oral and IV Dye (Verified Allergy, Intermediate, skin burning, 02/03/17) iodine (Verified Allergy, Intermediate, rash, 02/03/17) vancomycin (Verified Allergy, Intermediate, itching, 02/03/17) hydralazine (Verified Adverse Reaction, Intermediate, high bp shaking, ) ROS General: No: Chills, Night Sweats, Fatigue, Malaise, Appetite, Other PSYCHOLOGICAL ROS: No: Anxiety, Behavioral Disorder, Concentration difficultie , Decreased libido, Depression, Disorientation, Hallucinations, Hostility, Irritablity, Memory difficulties, Mood Swings, Obsessive thoughts, Physical abuse, Sexual abuse, Sleep disturbances, Suicidal ideation, Other Eyes: No Blurry vision, No Decreased vision, No Double vision, No Dry eyes, No Excessive tearing, No Eye Pain, No Itchy Eyes, No Loss of vision, No Photophobia , No Scotomata, No Uses contacts, No Uses glasses, No Other HEENT: No: Heacaches, Visual Changes, Hearing change, Nasal congestion, Nasal discharge, Oral lesions, Sinus pain, Sore Throat, Epistaxis, Sneezing, Snoring, Tinnitus, Vertigo, Vocal changes, Other ALLERGY AND IMMUNOLOGY: No: Hives, Insect Bite Sensitivity, Itchy/Watery Eyes, Nasal Congestion, Post Nasal Drip, Seasonal Allergies, Other Hematological and Lymphatic: No: Bleeding Problems, Blood Clots, Blood Transfusions, Brusing, Night Sweats, Pallor, Swollen Lymph Nodes, Other Respiratory: No: Cough, Hemoptysis, Orthopnea, Pleuritic Pain, Shortness of breath, SOB with excertion, Sputum Changes, Stridor, Tachypnea, Wheezing, Other Cardiovascular: No Chest Pain, No Palpitations, No Orthopnea, No Paroxysmal Noc. Dyspnea, No Edema, No Lt Headedness, No Other Gastrointestinal: No Nausea, No Vomiting, No Abdominal Pain, No Diarrhea, No Constipation, No Melena, No Hematochezia, No Other Musculoskeletal: Yes Joint Pain, Yes Joint Stiffness, Yes Joint Swelling Neurological: No Behavorial Changes, No Bowel/Bladder ControlChng, No Confusion , No Dizziness, No Gait Disturbance, No Headaches, No Impaired Coord/balance, No Memory Loss, No Numbness/Tingling, No Seizures, No Speech Problems, No Tremors, No Visual Changes, No Weakness, No Other Skin: No Dry Skin, No Eczema, No Hair Changes, No Lumps, No Mole Changes, No Mottling, No Nail Changes, No Pruritus, No Rash, No Skin Lesion Changes, No Other, No Acne Physical Exam General: Alert, Oriented X3 HEENT: Atraumatic, EOMI Lungs: Other (respirations unlabored with symmetric chest rise) Heart: Regular rate Abdomen: Normal bowel sounds, No tenderness Extremities: Other (no edema, weak but palpable pulses bilaterally) Skin: No rashes Neuro: Strength at 5/5 X4 ext, Sensation intact Psych/Mental Status: Mental status NL, Mood NL MUSCULOSKELETAL: Other (he has a boutonniere deformity with swelling of his fifth digit. Poor range of motion in all joints in that digit. Examination of his left lower extremity reveals a large tense knee effusion. Overlying skin has wrinkles and good mobility. No abrasions. Unable to do a straight leg raise or extend his knee, cell about 30 of flexion. He has a markedly decrease in quad bulk bilaterally. No tenderness elsewhere in his left lower extremity) Vitals VITALS Vital Signs Date Time Temp Pulse Resp B/P (MAP) Pulse Ox O2 Delivery O2 Flow Rate FiO2 11/28/17 10:12 74 204/100 11/28/17 08:25 Room Air 11/28/17 07:00 97.6 18 97 97.6 Labs Labs Laboratory Tests Test 11/28/17 08:50 White Blood Count 7.1 x10^3/uL (4.0-11.0) Red Blood Count 3.87 x10^6/uL (4.30-5.70) Hemoglobin 12.7 g/dL (13.0-17.5) Hematocrit 38.1 % (39.0-53.0) Mean Corpuscular Volume 98 fL (79-100) Mean Corpuscular Hemoglobin 33 pg (25-35) Mean Corpuscular Hemoglobin Concent 33 g/dL (31-37) Red Cell Distribution Width 14.5 % (11.5-14.5) Platelet Count 127 x10^3/uL (140-400) Neutrophils (%) (Auto) 84 % (31-73) Lymphocytes (%) (Auto) 9 % (24-48) Monocytes (%) (Auto) 6 % (0-9) Eosinophils (%) (Auto) 0 % (0-3) Basophils (%) (Auto) 0 % (0-3) Neutrophils # (Auto) 5.9 x10^3uL (1.8-7.7) Lymphocytes # (Auto) 0.7 x10^3/uL (1.0-4.8) Monocytes # (Auto) 0.5 x10^3/uL (0.0-1.1) Eosinophils # (Auto) 0.0 x10^3/uL (0.0-0.7) Basophils # (Auto) 0.0 x10^3/uL (0.0-0.2) Sodium Level 138 mmol/L (136-145) Potassium Level 5.5 mmol/L (3.5-5.1) Chloride Level 100 mmol/L (98-107) Carbon Dioxide Level 32 mmol/L (21-32) Anion Gap 6 (6-14) Blood Urea Nitrogen 33 mg/dL (8-26) Creatinine 9.2 mg/dL (0.7-1.3) Estimated GFR (Cockcroft-Gault) 7.4 Glucose Level 106 mg/dL (70-99) Calcium Level 8.0 mg/dL (8.5-10.1) Laboratory Tests Test 11/28/17 08:50 White Blood Count 7.1 x10^3/uL (4.0-11.0) Red Blood Count 3.87 x10^6/uL (4.30-5.70) Hemoglobin 12.7 g/dL (13.0-17.5) Hematocrit 38.1 % (39.0-53.0) Mean Corpuscular Volume 98 fL (79-100) Mean Corpuscular Hemoglobin 33 pg (25-35) Mean Corpuscular Hemoglobin Concent 33 g/dL (31-37) Red Cell Distribution Width 14.5 % (11.5-14.5) Platelet Count 127 x10^3/uL (140-400) Neutrophils (%) (Auto) 84 % (31-73) Lymphocytes (%) (Auto) 9 % (24-48) Monocytes (%) (Auto) 6 % (0-9) Eosinophils (%) (Auto) 0 % (0-3) Basophils (%) (Auto) 0 % (0-3) Neutrophils # (Auto) 5.9 x10^3uL (1.8-7.7) Lymphocytes # (Auto) 0.7 x10^3/uL (1.0-4.8) Monocytes # (Auto) 0.5 x10^3/uL (0.0-1.1) Eosinophils # (Auto) 0.0 x10^3/uL (0.0-0.7) Basophils # (Auto) 0.0 x10^3/uL (0.0-0.2) Sodium Level 138 mmol/L (136-145) Potassium Level 5.5 mmol/L (3.5-5.1) Chloride Level 100 mmol/L (98-107) Carbon Dioxide Level 32 mmol/L (21-32) Anion Gap 6 (6-14) Blood Urea Nitrogen 33 mg/dL (8-26) Creatinine 9.2 mg/dL (0.7-1.3) Estimated GFR (Cockcroft-Gault) 7.4 Glucose Level 106 mg/dL (70-99) Calcium Level 8.0 mg/dL (8.5-10.1) Images Images Hand x-rays were interpreted by myself. Knee x-rays interpreted by myself. No acute changes at his hand. He has a transverse minimally displaced left patella fracture. The distal portion of an intramedullary nail is present in his left knee x-rays as well Assessment/Plan Assessment/Plan Soft tissue injury to left fifth digit. No intervention other than supportive care as needed. Regarding his patella, I discussed proceeding with operative intervention as he is unable to extend her perform straight leg raise. I think his soft tissues are amenable to fixation today. I did discuss the risks, benefits, and alternatives to surgery and they wish proceed. SHERRY MARIA II, MD Nov 28, 2017 10:43
--- NOTE | 2017-11-28 10:45 | PDOC2 ---
CONSULT Date of Consult Date of Consult DATE: 11/28/17 TIME: 10:40 Reason for Consult Reason for Consult: ESRD Referring Physician Referring Physician: NOEMÍ Identification/Chief Complaint Chief Complaint FALL AND KNEE PAIN Source Source: Chart review, Patient History of Present Illness Reason for Visit: THIS IS A 52 YR OLD WITH ESRD ON HD MWF. LAST HD ON SAT SINCE [place] M[place]ED [place]. HAS ESRD DUE TO HTN. HERE WITH A FALL WHILE PLAYING WITH HIS GRANDSON ON A NON MOTORIZED SCOOTER. HAS SUSTAINED A LEFT PATELLAR COMMINUTED FX. LABS ARE C/ W HIS ESRD. BP VERY HIGH. ? NON COMPLIANCE WITH MEDS. HAS RIGHT ARM AVF FOR HIS DIALYSIS Past Medical History Cardiovascular: HTN Pulmonary: No pertinent hx CENTRAL NERVOUS SYSTEM: Other GI: No pertinent hx Heme/Onc: No pertinent hx Hepatobiliary: No pertinent hx Psych: No pertinent hx Musculoskeletal: No pain Rheumatologic: Other Infectious disease: No pertinent hx Renal/: Chronic renal failure Endocrine: Hyperparathyroidism Past Surgical History Past Surgical History: Appendectomy Social History ALCOHOL: none Drugs: None Current Medications Current Medications Current Medications Morphine Sulfate (Morphine Sulfate) 6 mg 1X ONCE IV Last administered on at 02:33; Start 11/28/17 at 02:45; Stop 11/28/17 at 02:50; Status DC Ondansetron HCl (Zofran) 4 mg 1X ONCE IV Last administered on 11/28/17at 02:38 ; Start 11/28/17 at 02:30; Stop 11/28/17 at 02:50; Status DC Morphine Sulfate (Morphine Sulfate) 10 mg STK-MED ONCE .ROUTE ; Start 11/28/17 at 02:32; Stop 11/28/17 at 02:33; Status DC Morphine Sulfate (Morphine Sulfate) 4 mg 1X ONCE IV Last administered on at 03:49; Start 11/28/17 at 03:45; Stop 11/28/17 at 03:46; Status DC Ondansetron HCl (Zofran) 4 mg PRN Q8HRS PRN IV NAUSEA/VOMITING; Start 11/28/17 at 05:00; Stop 11/29/17 at 04:59 Morphine Sulfate (Morphine Sulfate) 4 mg PRN Q2HR PRN IV PAIN Last administered on 11/28/17at 10:36; Start 11/28/17 at 05:00; Stop 11/29/17 at 04:59 Alprazolam (Xanax) 1 mg TID PO Last administered on 11/28/17at 10:11; Start 01/05 at 10:00 Calcium Acetate (Phoslo) 667 mg TIDWMEALS PO ; Start 11/28/17 at 12:00 Carvedilol (Coreg) 12.5 mg BIDWMEALS PO Last administered on 11/28/17at 10:11; Start 11/28/17 at 10:00 Diphenhydramine HCl (Benadryl) 25 mg PRN QHS PRN PO ITCHING; Start 11/28/17 at 09:15 Acetaminophen/ Hydrocodone Bitart (Lortab 5/325) 1 tab PRN Q4HRS PRN PO MODERATE PAIN; Start 11/28/17 at 09:15 Sevelamer Carbonate (Renvela) 2,400 mg TIDWMEALS PO ; Start 11/28/17 at 12:00 Amlodipine Besylate (Norvasc) 2.5 mg DAILY PO Last administered on 11/28/17at 10 :12; Start 11/28/17 at 09:15 Cefazolin Sodium 50 ml @ 100 mls/hr 1X ONCE IV ; Start 11/28/17 at 10:45; Stop 11/28/17 at 11:14 Active Scripts Active Reported Hydrocodone-Apap 5-325 (Hydrocodone Bit/Acetaminophen) 1 Each Tablet 1 Tab PO Q4HRS PRN Benadryl (Diphenhydramine Hcl) 25 Mg Capsule 1 Cap PO QHS PRN Renvela (Sevelamer Carbonate) 800 Mg Tablet 3 Tab PO TID Alprazolam 1 Mg Tablet 1 Tab PO TID Carvedilol 12.5 Mg Tablet 1 Tab PO BID Phoslo (Calcium Acetate) 667 Mg Capsule 667 Mg PO TIDWMEALS Nephro-Obdulia Rx Tablet (Vit B Cmplx 3/Fa/Vit C/Biotin) 1 Each Tablet 1 Each PO DAILY Allergies Allergies: Coded Allergies: Iodinated Contrast- Oral and IV Dye (Verified Allergy, Intermediate, skin burning, 02/03/17) iodine (Verified Allergy, Intermediate, rash, 02/03/17) vancomycin (Verified Allergy, Intermediate, itching, 02/03/17) hydralazine (Verified Adverse Reaction, Intermediate, high bp shaking, ) ROS General: YES: Fatigue PSYCHOLOGICAL ROS: YES: Anxiety Eyes: Yes Decreased vision HEENT: YES: Heacaches Respiratory: YES: Cough Gastrointestinal: Yes Constipation Genitourinary: YES Other (ANURIA) Musculoskeletal: Yes Joint Pain, Yes Joint Stiffness, Yes Muscular Weakness Neurological: Yes Weakness Skin: Yes Dry Skin Physical Exam General: Alert, Oriented X3, Cooperative, mild distress HEENT: Atraumatic, PERRLA, EOMI Lungs: Clear to auscultation Heart: Regular rate, Normal S1, Normal S2 Abdomen: Normal bowel sounds, Soft Neuro: Normal speech, Cranial nerves 3-12 NL Psych/Mental Status: Mental status NL, Mood NL MUSCULOSKELETAL: Other (LEFT KNEE EDEMA) Vitals VITALS Vital Signs Date Time Temp Pulse Resp B/P (MAP) Pulse Ox O2 Delivery O2 Flow Rate FiO2 11/28/17 10:36 Room Air 11/28/17 10:12 74 204/100 11/28/17 07:00 97.6 18 97 97.6 Labs Labs Laboratory Tests Test 11/28/17 08:50 White Blood Count 7.1 x10^3/uL (4.0-11.0) Red Blood Count 3.87 x10^6/uL (4.30-5.70) Hemoglobin 12.7 g/dL (13.0-17.5) Hematocrit 38.1 % (39.0-53.0) Mean Corpuscular Volume 98 fL (79-100) Mean Corpuscular Hemoglobin 33 pg (25-35) Mean Corpuscular Hemoglobin Concent 33 g/dL (31-37) Red Cell Distribution Width 14.5 % (11.5-14.5) Platelet Count 127 x10^3/uL (140-400) Neutrophils (%) (Auto) 84 % (31-73) Lymphocytes (%) (Auto) 9 % (24-48) Monocytes (%) (Auto) 6 % (0-9) Eosinophils (%) (Auto) 0 % (0-3) Basophils (%) (Auto) 0 % (0-3) Neutrophils # (Auto) 5.9 x10^3uL (1.8-7.7) Lymphocytes # (Auto) 0.7 x10^3/uL (1.0-4.8) Monocytes # (Auto) 0.5 x10^3/uL (0.0-1.1) Eosinophils # (Auto) 0.0 x10^3/uL (0.0-0.7) Basophils # (Auto) 0.0 x10^3/uL (0.0-0.2) Sodium Level 138 mmol/L (136-145) Potassium Level 5.5 mmol/L (3.5-5.1) Chloride Level 100 mmol/L (98-107) Carbon Dioxide Level 32 mmol/L (21-32) Anion Gap 6 (6-14) Blood Urea Nitrogen 33 mg/dL (8-26) Creatinine 9.2 mg/dL (0.7-1.3) Estimated GFR (Cockcroft-Gault) 7.4 Glucose Level 106 mg/dL (70-99) Calcium Level 8.0 mg/dL (8.5-10.1) Laboratory Tests Test 11/28/17 08:50 White Blood Count 7.1 x10^3/uL (4.0-11.0) Red Blood Count 3.87 x10^6/uL (4.30-5.70) Hemoglobin 12.7 g/dL (13.0-17.5) Hematocrit 38.1 % (39.0-53.0) Mean Corpuscular Volume 98 fL (79-100) Mean Corpuscular Hemoglobin 33 pg (25-35) Mean Corpuscular Hemoglobin Concent 33 g/dL (31-37) Red Cell Distribution Width 14.5 % (11.5-14.5) Platelet Count 127 x10^3/uL (140-400) Neutrophils (%) (Auto) 84 % (31-73) Lymphocytes (%) (Auto) 9 % (24-48) Monocytes (%) (Auto) 6 % (0-9) Eosinophils (%) (Auto) 0 % (0-3) Basophils (%) (Auto) 0 % (0-3) Neutrophils # (Auto) 5.9 x10^3uL (1.8-7.7) Lymphocytes # (Auto) 0.7 x10^3/uL (1.0-4.8) Monocytes # (Auto) 0.5 x10^3/uL (0.0-1.1) Eosinophils # (Auto) 0.0 x10^3/uL (0.0-0.7) Basophils # (Auto) 0.0 x10^3/uL (0.0-0.2) Sodium Level 138 mmol/L (136-145) Potassium Level 5.5 mmol/L (3.5-5.1) Chloride Level 100 mmol/L (98-107) Carbon Dioxide Level 32 mmol/L (21-32) Anion Gap 6 (6-14) Blood Urea Nitrogen 33 mg/dL (8-26) Creatinine 9.2 mg/dL (0.7-1.3) Estimated GFR (Cockcroft-Gault) 7.4 Glucose Level 106 mg/dL (70-99) Calcium Level 8.0 mg/dL (8.5-10.1) Assessment/Plan Assessment/Plan IMP HTN - MALIGNANT ANEMIA ESRD L PATELLAR FX ?NO COMPLIANCE PLAN ORTHO EVAL AND TX HD TODAY UF TO DW HOLD BRIANA START LISINOPRIL JUAN GUSTAFSON MD Nov 28, 2017 10:45
[2017-11-28] MEDS ORDERED: ASPI81TA50 PO (10:54)
[2017-11-28] MEDS ORDERED: BUPIVACAINE 0.5% 50 ML VIAL. ONE (11:15)
[2017-11-28] MEDS ORDERED: LIDOCAINE 1% PF 30 ML VIAL. ONE (11:15)
[2017-11-28] MEDS ORDERED: fentaNYL PF VIAL 100 MCG/2 ML VIAL ONE (11:26)
[2017-11-28] MEDS ORDERED: PROPOFOL 20 ML IV ONE (11:26)
[2017-11-28] MEDS ORDERED: MIDAZOLAM HCL/PF 2 MG/2 ML VIAL. ONE (11:26)
[2017-11-28] MEDS: LISINOPRIL 20 MG TABLET PO SCH (11:30)
[2017-11-28] MEDS ORDERED: IV NORMAL SALINE 500ML BAG 500 ML IV PRN (11:30)
[2017-11-28] MEDS: SEVELAMER CARBONATE 800 MG TABLET. PO SCH ×2 (11:31→17:00)
[2017-11-28] MEDS: CALCIUM ACETATE 667 MG CAPSULE PO SCH ×2 (11:31→17:00)
[2017-11-28] MEDS ORDERED: ceFAZolin SODIUM 1 GM in IV DEXTROSE 5% 50 ML IV SCH (12:30)
[2017-11-28] MEDS ORDERED: LIDOCAINE 1% PF 30 ML VIAL. INJ ONE (12:56)
[2017-11-28] MEDS ORDERED: BUPIVACAINE 0.5% 50 ML VIAL. INJ ONE (12:56)
[2017-11-28] MEDS ORDERED: ONDANSETRON PF 4 MG/2 ML VIAL. ONE (12:58)
[2017-11-28] MEDS ORDERED: DEXAMETHASONE SOD PHOS 20 MG/5 ML VIAL. ONE (12:58)
[2017-11-28] MEDS ORDERED: PHENYLEPHRINE in 0.9% NACL PF 1 MG/10 ML SYRINGE. IV ONE (13:13)
[2017-11-28] MEDS ORDERED: SEVOFLURANE 61 TO 120 MINUTES. IH ONE (13:42)
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
[2017-11-28] MEDS ORDERED: diphenhydrAMINE 50 MG/ML VIAL IV PRN ×2 (16:00)
[2017-11-28] MEDS ORDERED: DIALYSIS PATIENT. MC PRN (16:00)
[2017-11-28] MEDS ORDERED: IV NORMAL SALINE 1000ML BAG 1,000 ML IV PRN ×2 (16:00)
[2017-11-28 19:00] VITALS: BP 116/72
[2017-11-28] MEDS: ceFAZolin SODIUM IV Push 1 GM VIAL. IVP SCH (19:43)
[2017-11-28] MEDS: HYDROcodone/APAP 5/325MG 1 TAB TABLET PO PRN (19:44)
[2017-11-28 23:00] VITALS: BP 101/65
[2017-11-29] MEDS: HYDROcodone/APAP 5/325MG 1 TAB TABLET PO PRN ×3 (01:41→14:25)
[2017-11-29] MEDS: ceFAZolin SODIUM IV Push 1 GM VIAL. IVP SCH ×2 (01:41→07:52)
[2017-11-29 03:00] VITALS: BP 110/67
[2017-11-29] MEDS: ONDANSETRON PF 4 MG/2 ML VIAL. IV PRN ×2 (05:48→15:41)
[2017-11-29 07:00] VITALS: BP 118/70
[2017-11-29 08:00] VITALS: BP 87/51
[2017-11-29] MEDS: CALCIUM ACETATE 667 MG CAPSULE PO SCH ×3 (08:00→17:00)
[2017-11-29] MEDS: SEVELAMER CARBONATE 800 MG TABLET. PO SCH ×3 (08:00→17:00)
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
--- NOTE | 2017-11-29 08:55 | PDOC ---
ORTHO PROGRESS NOTES Subjective Pain tolerable. No new complaints Vitals Vital Signs Date Time Temp Pulse Resp B/P (MAP) Pulse Ox O2 Delivery O2 Flow Rate FiO2 11/29/17 07:54 16 Room Air 11/29/17 07:00 98.1 80 118/70 (86) 97 98.1 Labs Laboratory Tests Test 11/28/17 08:50 White Blood Count 7.1 x10^3/uL (4.0-11.0) Red Blood Count 3.87 x10^6/uL (4.30-5.70) Hemoglobin 12.7 g/dL (13.0-17.5) Hematocrit 38.1 % (39.0-53.0) Mean Corpuscular Volume 98 fL (79-100) Mean Corpuscular Hemoglobin 33 pg (25-35) Mean Corpuscular Hemoglobin Concent 33 g/dL (31-37) Red Cell Distribution Width 14.5 % (11.5-14.5) Platelet Count 127 x10^3/uL (140-400) Neutrophils (%) (Auto) 84 % (31-73) Lymphocytes (%) (Auto) 9 % (24-48) Monocytes (%) (Auto) 6 % (0-9) Eosinophils (%) (Auto) 0 % (0-3) Basophils (%) (Auto) 0 % (0-3) Neutrophils # (Auto) 5.9 x10^3uL (1.8-7.7) Lymphocytes # (Auto) 0.7 x10^3/uL (1.0-4.8) Monocytes # (Auto) 0.5 x10^3/uL (0.0-1.1) Eosinophils # (Auto) 0.0 x10^3/uL (0.0-0.7) Basophils # (Auto) 0.0 x10^3/uL (0.0-0.2) Sodium Level 138 mmol/L (136-145) Potassium Level 5.5 mmol/L (3.5-5.1) Chloride Level 100 mmol/L (98-107) Carbon Dioxide Level 32 mmol/L (21-32) Anion Gap 6 (6-14) Blood Urea Nitrogen 33 mg/dL (8-26) Creatinine 9.2 mg/dL (0.7-1.3) Estimated GFR (Cockcroft-Gault) 7.4 Glucose Level 106 mg/dL (70-99) Calcium Level 8.0 mg/dL (8.5-10.1) Notes A and A in bed NVI in operative extremity, HKB in place Assessment and Plan NWB x 6 wks OK to go from my standpoint, once he works with PT and is able to get around SHERRY MARIA II, MD Nov 29, 2017 08:55
[2017-11-29] MEDS: amLODIPine BESYLATE 2.5 MG TABLET PO SCH (09:00)
[2017-11-29] MEDS: LISINOPRIL 20 MG TABLET PO SCH (09:00)
[2017-11-29] MEDS: CARVEDILOL 12.5 MG TABLET. PO SCH ×2 (09:45→17:00)
[2017-11-29] MEDS: ALPRAZolam 1 MG TABLET PO SCH ×3 (09:45→21:12)
--- NOTE | 2017-11-29 10:24 | PDOC ---
PROGRESS NOTES History of Present Illness History of Present Illness 52 year old male who presents with left knee injury. Closed transverse left patella fracture intractable pain iv narcotics prn Vitals Vitals Vital Signs Date Time Temp Pulse Resp B/P (MAP) Pulse Ox O2 Delivery O2 Flow Rate FiO2 11/29/17 09:45 80 118/70 11/29/17 07:54 16 Room Air 11/29/17 07:00 98.1 97 98.1 Physical Exam Physical Exam HENT: Normocephalic, atraumatic Eyes: PERRLA, EOMI Neck: Normal range of motion, no tenderness, supple Cardiovascular:Heart rate regular rhythm, no murmur Lungs & Thorax: Bilateral breath sounds clear to auscultation Skin: Warm, dry, no erythema Back: No tenderness Extremities: Capillary refill < 2 seconds. Significant effusion , left knee. Ecchymosis. 2+ dp pulses in the dorsalis pedis and posterior tibial. Neurologic: Alert and oriented X 3 Psychologic: Affect normal General: Alert, Oriented X3, Cooperative, mild distress, moderate distress Heart: Regular rate, Normal S1, Normal S2 Lungs: Clear Abdomen: Normal bowel sounds, Soft Extremities: No cyanosis, Other (no edema, weak but palpable pulses bilaterally ) Skin: No rashes Review of Systems Review of Systems Operative Note Date of procedure: 11/28/2017 Surgeon: Rip Poe Piece Worker: None Preoperative diagnosis: Closed transverse left patella fracture Postoperative diagnosis: Same Procedure performed: Open reduction internal fixation left patella fracture Anesthesia: Gen. Tourniquet time: None used Blood loss: 100 mL Components inserted: 2 [employer] 3.0 mm cannulated screws, 18-gauge stainless steel wire Findings: Acute fracture, small tear medial retinaculum Comment Review of Relevant I have reviewed the following items jos (where applicable) has been applied. Labs Laboratory Tests Test 11/28/17 08:50 White Blood Count 7.1 x10^3/uL (4.0-11.0) Red Blood Count 3.87 x10^6/uL (4.30-5.70) Hemoglobin 12.7 g/dL (13.0-17.5) Hematocrit 38.1 % (39.0-53.0) Mean Corpuscular Volume 98 fL (79-100) Mean Corpuscular Hemoglobin 33 pg (25-35) Mean Corpuscular Hemoglobin Concent 33 g/dL (31-37) Red Cell Distribution Width 14.5 % (11.5-14.5) Platelet Count 127 x10^3/uL (140-400) Neutrophils (%) (Auto) 84 % (31-73) Lymphocytes (%) (Auto) 9 % (24-48) Monocytes (%) (Auto) 6 % (0-9) Eosinophils (%) (Auto) 0 % (0-3) Basophils (%) (Auto) 0 % (0-3) Neutrophils # (Auto) 5.9 x10^3uL (1.8-7.7) Lymphocytes # (Auto) 0.7 x10^3/uL (1.0-4.8) Monocytes # (Auto) 0.5 x10^3/uL (0.0-1.1) Eosinophils # (Auto) 0.0 x10^3/uL (0.0-0.7) Basophils # (Auto) 0.0 x10^3/uL (0.0-0.2) Sodium Level 138 mmol/L (136-145) Potassium Level 5.5 mmol/L (3.5-5.1) Chloride Level 100 mmol/L (98-107) Carbon Dioxide Level 32 mmol/L (21-32) Anion Gap 6 (6-14) Blood Urea Nitrogen 33 mg/dL (8-26) Creatinine 9.2 mg/dL (0.7-1.3) Estimated GFR (Cockcroft-Gault) 7.4 Glucose Level 106 mg/dL (70-99) Calcium Level 8.0 mg/dL (8.5-10.1) Medications Current Medications Morphine Sulfate (Morphine Sulfate) 6 mg 1X ONCE IV Last administered on at 02:33; Start 11/28/17 at 02:45; Stop 11/28/17 at 02:50; Status DC Ondansetron HCl (Zofran) 4 mg 1X ONCE IV Last administered on 11/28/17at 02:38 ; Start 11/28/17 at 02:30; Stop 11/28/17 at 02:50; Status DC Morphine Sulfate (Morphine Sulfate) 10 mg STK-MED ONCE .ROUTE ; Start 11/28/17 at 02:32; Stop 11/28/17 at 02:33; Status DC Morphine Sulfate (Morphine Sulfate) 4 mg 1X ONCE IV Last administered on at 03:49; Start 11/28/17 at 03:45; Stop 11/28/17 at 03:46; Status DC Ondansetron HCl (Zofran) 4 mg PRN Q8HRS PRN IV NAUSEA/VOMITING; Start 11/28/17 at 05:00; Stop 11/29/17 at 04:59; Status DC Morphine Sulfate (Morphine Sulfate) 4 mg PRN Q2HR PRN IV PAIN Last administered on 11/28/17at 10:36; Start 11/28/17 at 05:00; Stop 11/29/17 at 04:59 ; Status DC Alprazolam (Xanax) 1 mg TID PO Last administered on 11/29/17at 09:45; Start 01/05 at 10:00 Calcium Acetate (Phoslo) 667 mg TIDWMEALS PO ; Start 11/28/17 at 12:00 Carvedilol (Coreg) 12.5 mg BIDWMEALS PO Last administered on 11/29/17at 09:45; Start 11/28/17 at 10:00 Diphenhydramine HCl (Benadryl) 25 mg PRN QHS PRN PO ITCHING; Start 11/28/17 at 09:15 Acetaminophen/ Hydrocodone Bitart (Lortab 5/325) 1 tab PRN Q4HRS PRN PO MODERATE PAIN Last administered on 11/29/17at 07:54; Start 11/28/17 at 09:15 Sevelamer Carbonate (Renvela) 2,400 mg TIDWMEALS PO ; Start 11/28/17 at 12:00 Amlodipine Besylate (Norvasc) 2.5 mg DAILY PO Last administered on 11/28/17at 10 :12; Start 11/28/17 at 09:15 Cefazolin Sodium 50 ml @ 100 mls/hr 1X ONCE IV Last administered on at 12:47; Start 11/28/17 at 10:45; Stop 11/28/17 at 11:14; Status DC Lisinopril (Prinivil) 20 mg DAILY PO ; Start 11/28/17 at 11:30 Sodium Chloride 500 ml @ 0 mls/hr 1X PACU PRN IV SEE I/O RECORD Last administered on 11/28/17at 11:40; Start 11/28/17 at 11:30 Propofol 20 ml @ As Directed STK-MED ONCE IV ; Start 11/28/17 at 11:26; Stop 01/05 at 11:27; Status DC Fentanyl Citrate (Fentanyl 2ml Vial) 100 mcg STK-MED ONCE .ROUTE ; Start at 11:26; Stop 11/28/17 at 11:27; Status DC Midazolam HCl (Versed) 2 mg STK-MED ONCE .ROUTE ; Start 11/28/17 at 11:26; Stop 11/28/17 at 11:27; Status DC Cefazolin Sodium 1 gm/Dextrose 50 ml @ 100 mls/hr Q6H IV ; Start 11/28/17 at 12 :30; Stop 11/29/17 at 00:59; Status UNV Lidocaine HCl (Xylocaine 1% Pf 30ml Vial) 30 ml STK-MED ONCE .ROUTE ; Start 01/05 at 11:15; Stop 11/28/17 at 12:15; Status DC Bupivacaine HCl (Marcaine 0.5%) 50 ml STK-MED ONCE .ROUTE ; Start 11/28/17 at 11 :15; Stop 11/28/17 at 12:15; Status DC Cefazolin Sodium (Ancef) 1 gm Q6H IVP Last administered on 11/29/17at 07:52; Start 11/28/17 at 17:00; Stop 11/29/17 at 08:01; Status DC Dexamethasone Sodium Phosphate (Decadron) 20 mg STK-MED ONCE .ROUTE ; Start 01/05 at 12:58; Stop 11/28/17 at 12:59; Status DC Ondansetron HCl (Zofran) 4 mg STK-MED ONCE .ROUTE ; Start 11/28/17 at 12:58; Stop 11/28/17 at 12:59; Status DC Phenylephrine HCl (PHENYLEPHRINE in 0.9% NACL PF) 1 mg STK-MED ONCE IV ; Start 11/28/17 at 13:13; Stop 11/28/17 at 13:14; Status DC Bupivacaine HCl (Marcaine 0.5%) 50 ml STK-MED ONCE INJ Last administered on 01/05at 12:56; Start 11/28/17 at 12:56; Stop 11/28/17 at 13:27; Status DC Lidocaine HCl (Xylocaine 1% Pf 30ml Vial) 30 ml STK-MED ONCE INJ Last administered on 11/28/17at 12:56; Start 11/28/17 at 12:56; Stop 11/28/17 at 13:27 ; Status DC Sevoflurane (Ultane) 60 ml STK-MED ONCE IH ; Start 11/28/17 at 13:42; Stop 11/28 at 13:43; Status DC Sodium Chloride 1,000 ml @ 1,000 mls/hr Q1H PRN IV hypotension; Start 11/28/17 at 16:00; Stop 11/28/17 at 21:59; Status DC Diphenhydramine HCl (Benadryl) 25 mg 1X PRN PRN IV ITCHING; Start 11/28/17 at 16:00; Stop 11/29/17 at 15:59 Diphenhydramine HCl (Benadryl) 25 mg 1X PRN PRN IV ITCHING; Start 11/28/17 at 16:00; Stop 11/29/17 at 15:59 Sodium Chloride 1,000 ml @ 400 mls/hr Q2H30M PRN IV PATENCY; Start 11/28/17 at 16:00; Stop 11/29/17 at 03:59; Status DC Info (PHARMACY MONITORING -- do not chart) 1 each PRN DAILY PRN MC SEE COMMENTS ; Start 11/28/17 at 16:00 Ondansetron HCl (Zofran) 4 mg PRN Q6HRS PRN IV NAUSEA/VOMITING Last administered on 11/29/17at 05:48; Start 11/29/17 at 05:45 Active Scripts Active Reported Aspir-Low (Aspirin) 81 Mg Tablet. 1 Tab PO DAILY Hydrocodone-Apap 5-325 (Hydrocodone Bit/Acetaminophen) 1 Each Tablet 1 Tab PO Q4HRS PRN Benadryl (Diphenhydramine Hcl) 25 Mg Capsule 1 Cap PO QHS PRN Renvela (Sevelamer Carbonate) 800 Mg Tablet 3 Tab PO TID Alprazolam 1 Mg Tablet 1 Tab PO TID Carvedilol 12.5 Mg Tablet 1 Tab PO BID Phoslo (Calcium Acetate) 667 Mg Capsule 667 Mg PO TIDWMEALS Nephro-Obdulia Rx Tablet (Vit B Cmplx 3/Fa/Vit C/Biotin) 1 Each Tablet 1 Each PO DAILY Vitals/I & O Vital Sign - Last 24 Hours 11/28/17 11/28/17 11/28/17 11/28/17 10:36 11:17 13:57 13:57 Temp 97.6 97.0 97.6 97.0 Pulse 85 79 Resp 15 15 B/P (MAP) 192/94 158/88 Pulse Ox 93 100 O2 Delivery Room Air Room Air Room Air Room Air 11/28/17 11/28/17 11/28/17 11/28/17 14:12 14:27 19:00 19:44 Temp 97.0 97.0 98.1 97.0 97.0 98.1 Pulse 82 82 85 Resp 15 18 B/P (MAP) 160/89 138/78 116/72 (87) Pulse Ox 100 97 100 O2 Delivery Room Air Room Air Room Air Room Air 11/28/17 11/28/17 11/28/17 11/29/17 19:45 20:00 23:00 01:41 Temp 97.9 97.9 Pulse 78 86 Resp 18 B/P (MAP) 145/74 101/65 (77) Pulse Ox 97 O2 Delivery Room Air Room Air Room Air 11/29/17 11/29/17 11/29/17 11/29/17 02:46 03:00 07:00 07:54 Temp 98.1 98.1 98.1 98.1 Pulse 89 80 Resp 18 18 18 16 B/P (MAP) 110/67 (81) 118/70 (86) Pulse Ox 97 97 O2 Delivery Room Air Room Air Room Air Room Air 11/29/17 09:45 Pulse 80 B/P (MAP) 118/70 Intake and Output 11/28/17 11/28/17 11/29/17 15:00 23:00 07:00 Intake Total 300 ml 0 ml 400 ml Output Total 5 ml Balance 295 ml 0 ml 400 ml LISA BARRERA MD Nov 29, 2017 10:24
--- NOTE | 2017-11-29 11:19 | PDOC ---
Renal-Progress Notes Subjective Notes Notes NONE History of Present Illness Hx of present illness STABLE Vitals Vitals Vital Signs Date Time Temp Pulse Resp B/P (MAP) Pulse Ox O2 Delivery O2 Flow Rate FiO2 11/29/17 09:45 80 118/70 11/29/17 07:54 16 Room Air 11/29/17 07:00 98.1 97 98.1 Weight Weight [ ] I.O. Intake and Output Intake and Output 11/29/17 07:00 Intake Total 700 ml Output Total 5 ml Balance 695 ml Intake Oral 400 ml IV Total 300 ml Output Estimated Blood Loss 5 ml Review of Systems Constitutional: yes: alert, oriented Ears/Nose/Throat: Yes: no symptom reported Eyes: Yes: no symptom reported Pulmonary: Yes no symptom reported Cardiovascular: Yes no symptom reported Gastrointestional: Yes: no symptom reported Genitourinary: Yes: no symptom reported Musculoskeletal: Yes: joint pain Skin: Yes no symptom reported Psychiatric/Neurological: Yes: no symptom reported Endocrine: Yes: no symptom reported Physical Exam General Appearance: no apparent distress Skin: warm Respiratory: bilateral CTA Heart: S1S2 Abdomen: soft, bowel sounds present Genitourinary: bladder flat Extremities: pulses present Neurology: alert, oriented Musculoskeletal: No pain Assessment Assessment IMP PATELLAR FX HTN ANEMIA ESRD PLAN HD TOMORROW PER JUAN REYNOSO MD Nov 29, 2017 11:19
[2017-11-29 15:00] VITALS: BP 112/66
[2017-11-29] MEDS: MORPHINE SULFATE 4 MG/ML VIAL. IV PRN ×2 (15:13→21:13)
[2017-11-29 19:00] VITALS: BP 117/67
[2017-11-29 23:00] VITALS: BP 117/67
[2017-11-30 03:00] VITALS: BP 142/73
[2017-11-30 05:14] LABS: BASO % 0 % (0-3); EOS % 1 % (0-3); HEMATOCRIT 35.7 % (39.0-53.0); HEMOGLOBIN 12.1 g/dL (13.0-17.5); LYMPH # 0.8 x10^3/uL (1.0-4.8); LYMPH % 11 % (24-48); MEAN CORPUSCULAR HEMOGLOBIN 33 pg (25-35); MEAN CORPUSCULAR HGB CONC 34 g/dL (31-37); MEAN CORPUSCULAR VOLUME 97 fL (79-100); MONO # 0.6 x10^3/uL (0.0-1.1); MONO % 9 % (0-9); NEUT # 5.3 x10^3uL (1.8-7.7); NEUT % 79 % (31-73); PLATELET COUNT 134 x10^3/uL (140-400); RED BLOOD COUNT 3.68 x10^6/uL (4.30-5.70); RED CELL DISTRIBUTION WIDTH 14.5 % (11.5-14.5); WHITE BLOOD COUNT 6.8 x10^3/uL (4.0-11.0)
[2017-11-30 05:26] LABS: ALBUMIN 3.3 g/dL (3.4-5.0); CALCIUM 7.4 mg/dL (8.5-10.1); CREATININE 8.9 mg/dL (0.7-1.3); GFR 7.7; PHOSPHORUS 5.9 mg/dL (2.6-4.7); POTASSIUM 4.2 mmol/L (3.5-5.1)
[2017-11-30] MEDS: MORPHINE SULFATE 4 MG/ML VIAL. IV PRN (06:33)
--- NOTE | 2017-11-30 07:14 | PDOC ---
ORTHO PROGRESS NOTES Subjective Patient with no new complaints this morning, Post-op Day: 1 Procedure ORIF left patellar fracture Vitals Vital Signs Date Time Temp Pulse Resp B/P (MAP) Pulse Ox O2 Delivery O2 Flow Rate FiO2 11/30/17 06:33 20 Room Air 11/30/17 03:00 98.6 83 142/73 (96) 96 98.6 11/29/17 20:45 96.0 Labs Laboratory Tests Test 11/28/17 08:50 11/30/17 03:00 White Blood Count 7.1 x10^3/uL (4.0-11.0) 6.8 x10^3/uL (4.0-11.0) Red Blood Count 3.87 x10^6/uL (4.30-5.70) 3.68 x10^6/uL (4.30-5.70) Hemoglobin 12.7 g/dL (13.0-17.5) 12.1 g/dL (13.0-17.5) Hematocrit 38.1 % (39.0-53.0) 35.7 % (39.0-53.0) Mean Corpuscular Volume 98 fL (79-100) 97 fL (79-100) Mean Corpuscular Hemoglobin 33 pg (25-35) 33 pg (25-35) Mean Corpuscular Hemoglobin Concent 33 g/dL (31-37) 34 g/dL (31-37) Red Cell Distribution Width 14.5 % (11.5-14.5) 14.5 % (11.5-14.5) Platelet Count 127 x10^3/uL (140-400) 134 x10^3/uL (140-400) Neutrophils (%) (Auto) 84 % (31-73) 79 % (31-73) Lymphocytes (%) (Auto) 9 % (24-48) 11 % (24-48) Monocytes (%) (Auto) 6 % (0-9) 9 % (0-9) Eosinophils (%) (Auto) 0 % (0-3) 1 % (0-3) Basophils (%) (Auto) 0 % (0-3) 0 % (0-3) Neutrophils # (Auto) 5.9 x10^3uL (1.8-7.7) 5.3 x10^3uL (1.8-7.7) Lymphocytes # (Auto) 0.7 x10^3/uL (1.0-4.8) 0.8 x10^3/uL (1.0-4.8) Monocytes # (Auto) 0.5 x10^3/uL (0.0-1.1) 0.6 x10^3/uL (0.0-1.1) Eosinophils # (Auto) 0.0 x10^3/uL (0.0-0.7) 0.0 x10^3/uL (0.0-0.7) Basophils # (Auto) 0.0 x10^3/uL (0.0-0.2) 0.0 x10^3/uL (0.0-0.2) Sodium Level 138 mmol/L (136-145) 136 mmol/L (136-145) Potassium Level 5.5 mmol/L (3.5-5.1) 4.2 mmol/L (3.5-5.1) Chloride Level 100 mmol/L (98-107) 96 mmol/L (98-107) Carbon Dioxide Level 32 mmol/L (21-32) 30 mmol/L (21-32) Anion Gap 6 (6-14) 10 (6-14) Blood Urea Nitrogen 33 mg/dL (8-26) 40 mg/dL (8-26) Creatinine 9.2 mg/dL (0.7-1.3) 8.9 mg/dL (0.7-1.3) Estimated GFR (Cockcroft-Gault) 7.4 7.7 Glucose Level 106 mg/dL (70-99) 89 mg/dL (70-99) Calcium Level 8.0 mg/dL (8.5-10.1) 7.4 mg/dL (8.5-10.1) Phosphorus Level 5.9 mg/dL (2.6-4.7) Albumin 3.3 g/dL (3.4-5.0) Laboratory Tests Test 11/30/17 03:00 White Blood Count 6.8 x10^3/uL (4.0-11.0) Red Blood Count 3.68 x10^6/uL (4.30-5.70) Hemoglobin 12.1 g/dL (13.0-17.5) Hematocrit 35.7 % (39.0-53.0) Mean Corpuscular Volume 97 fL (79-100) Mean Corpuscular Hemoglobin 33 pg (25-35) Mean Corpuscular Hemoglobin Concent 34 g/dL (31-37) Red Cell Distribution Width 14.5 % (11.5-14.5) Platelet Count 134 x10^3/uL (140-400) Neutrophils (%) (Auto) 79 % (31-73) Lymphocytes (%) (Auto) 11 % (24-48) Monocytes (%) (Auto) 9 % (0-9) Eosinophils (%) (Auto) 1 % (0-3) Basophils (%) (Auto) 0 % (0-3) Neutrophils # (Auto) 5.3 x10^3uL (1.8-7.7) Lymphocytes # (Auto) 0.8 x10^3/uL (1.0-4.8) Monocytes # (Auto) 0.6 x10^3/uL (0.0-1.1) Eosinophils # (Auto) 0.0 x10^3/uL (0.0-0.7) Basophils # (Auto) 0.0 x10^3/uL (0.0-0.2) Sodium Level 136 mmol/L (136-145) Potassium Level 4.2 mmol/L (3.5-5.1) Chloride Level 96 mmol/L (98-107) Carbon Dioxide Level 30 mmol/L (21-32) Anion Gap 10 (6-14) Blood Urea Nitrogen 40 mg/dL (8-26) Creatinine 8.9 mg/dL (0.7-1.3) Estimated GFR (Cockcroft-Gault) 7.7 Glucose Level 89 mg/dL (70-99) Calcium Level 7.4 mg/dL (8.5-10.1) Phosphorus Level 5.9 mg/dL (2.6-4.7) Albumin 3.3 g/dL (3.4-5.0) Notes Awake and alert no c/o pain Assessment and Plan NWB L LE Brace locked 0-30 degrees OK to d/c per ortho standpoint when comfortable moving with PT follow up in clinic in 10-14 days JIMMY STILES APRN Nov 30, 2017 07:14
[2017-11-30 07:15] VITALS: BP 146/70
[2017-11-30] MEDS ORDERED: IV NORMAL SALINE 1000ML BAG 1,000 ML IV PRN ×2 (07:35)
[2017-11-30] MEDS ORDERED: ACETAMINOPHEN 500 MG TABLET PO PRN (07:45)
[2017-11-30] MEDS ORDERED: diphenhydrAMINE 50 MG/ML VIAL IV PRN ×2 (07:45)
[2017-11-30] MEDS ORDERED: DIALYSIS PATIENT. MC PRN (07:45)
[2017-11-30] MEDS: SEVELAMER CARBONATE 800 MG TABLET. PO SCH ×2 (08:11→14:29)
[2017-11-30] MEDS: CALCIUM ACETATE 667 MG CAPSULE PO SCH ×2 (08:11→12:00)
[2017-11-30] MEDS: ALPRAZolam 1 MG TABLET PO SCH ×2 (08:12→14:28)
[2017-11-30] MEDS: CARVEDILOL 12.5 MG TABLET. PO SCH (08:13)
[2017-11-30] MEDS: LISINOPRIL 20 MG TABLET PO SCH (08:15)
[2017-11-30] MEDS: amLODIPine BESYLATE 2.5 MG TABLET PO SCH (08:15)
[2017-11-30] MEDS ORDERED: LIDOCAINE 2% PF 2ML VIAL. ID STA (08:41)
--- NOTE | 2017-11-30 12:20 | PDOC ---
Renal-Progress Notes Subjective Notes Notes NONE History of Present Illness Hx of present illness STABLE Vitals Vitals Vital Signs Date Time Temp Pulse Resp B/P (MAP) Pulse Ox O2 Delivery O2 Flow Rate FiO2 11/30/17 08:13 78 146/70 11/30/17 07:15 98.2 20 96 Room Air 98.2 11/29/17 20:45 96.0 Weight Weight [ ] I.O. Intake and Output Intake and Output 11/30/17 07:00 Intake Total 400 ml Output Total 100 ml Balance 300 ml Intake Oral 400 ml Output Urine Total 100 ml # Voids 1 Labs Labs Laboratory Tests Test 11/30/17 03:00 White Blood Count 6.8 x10^3/uL (4.0-11.0) Red Blood Count 3.68 x10^6/uL (4.30-5.70) Hemoglobin 12.1 g/dL (13.0-17.5) Hematocrit 35.7 % (39.0-53.0) Mean Corpuscular Volume 97 fL (79-100) Mean Corpuscular Hemoglobin 33 pg (25-35) Mean Corpuscular Hemoglobin Concent 34 g/dL (31-37) Red Cell Distribution Width 14.5 % (11.5-14.5) Platelet Count 134 x10^3/uL (140-400) Neutrophils (%) (Auto) 79 % (31-73) Lymphocytes (%) (Auto) 11 % (24-48) Monocytes (%) (Auto) 9 % (0-9) Eosinophils (%) (Auto) 1 % (0-3) Basophils (%) (Auto) 0 % (0-3) Neutrophils # (Auto) 5.3 x10^3uL (1.8-7.7) Lymphocytes # (Auto) 0.8 x10^3/uL (1.0-4.8) Monocytes # (Auto) 0.6 x10^3/uL (0.0-1.1) Eosinophils # (Auto) 0.0 x10^3/uL (0.0-0.7) Basophils # (Auto) 0.0 x10^3/uL (0.0-0.2) Sodium Level 136 mmol/L (136-145) Potassium Level 4.2 mmol/L (3.5-5.1) Chloride Level 96 mmol/L (98-107) Carbon Dioxide Level 30 mmol/L (21-32) Anion Gap 10 (6-14) Blood Urea Nitrogen 40 mg/dL (8-26) Creatinine 8.9 mg/dL (0.7-1.3) Estimated GFR (Cockcroft-Gault) 7.7 Glucose Level 89 mg/dL (70-99) Calcium Level 7.4 mg/dL (8.5-10.1) Phosphorus Level 5.9 mg/dL (2.6-4.7) Albumin 3.3 g/dL (3.4-5.0) Review of Systems Constitutional: yes: alert, oriented Ears/Nose/Throat: Yes: no symptom reported Eyes: Yes: no symptom reported Pulmonary: Yes no symptom reported Cardiovascular: Yes no symptom reported Gastrointestional: Yes: no symptom reported Genitourinary: Yes: no symptom reported Musculoskeletal: Yes: joint pain Skin: Yes no symptom reported Psychiatric/Neurological: Yes: no symptom reported Endocrine: Yes: no symptom reported Physical Exam General Appearance: no apparent distress Skin: warm Respiratory: bilateral CTA Heart: S1S2 Abdomen: soft, bowel sounds present Genitourinary: bladder flat Extremities: pulses present Neurology: alert, oriented Musculoskeletal: No pain Assessment Assessment IMP PATELLAR FX HTN ANEMIA ESRD PLAN HD TODAY UF TO DW PER JAUN REYNOSO MD Nov 30, 2017 12:20
[2017-11-30] MEDS: HYDROcodone/APAP 5/325MG 1 TAB TABLET PO PRN (14:28)
--- NOTE | 2017-11-30 14:31 | PDOC ---
PROGRESS NOTES History of Present Illness History of Present Illness 52 year old male who presents with left knee injury. Closed transverse left patella fracture ORIF left patellar fracture intractable pain iv narcotics prn Vitals Vitals Vital Signs Date Time Temp Pulse Resp B/P (MAP) Pulse Ox O2 Delivery O2 Flow Rate FiO2 11/30/17 08:13 78 146/70 11/30/17 07:15 98.2 20 96 Room Air 98.2 11/29/17 20:45 96.0 Physical Exam Physical Exam HENT: Normocephalic, atraumatic Eyes: PERRLA, EOMI Neck: Normal range of motion, no tenderness, supple Cardiovascular:Heart rate regular rhythm, no murmur Lungs & Thorax: Bilateral breath sounds clear to auscultation Skin: Warm, dry, no erythema Back: No tenderness Extremities: Capillary refill < 2 seconds. Significant effusion , left knee. Ecchymosis. 2+ dp pulses in the dorsalis pedis and posterior tibial. Neurologic: Alert and oriented X 3 Psychologic: Affect normal General: Alert, Oriented X3, Cooperative, mild distress, moderate distress Heart: Regular rate, Normal S1, Normal S2 Lungs: Clear Abdomen: Normal bowel sounds, Soft Extremities: No cyanosis, Other (no edema, weak but palpable pulses bilaterally ) Skin: No rashes Labs LABS Laboratory Tests Test 11/30/17 03:00 White Blood Count 6.8 x10^3/uL (4.0-11.0) Red Blood Count 3.68 x10^6/uL (4.30-5.70) Hemoglobin 12.1 g/dL (13.0-17.5) Hematocrit 35.7 % (39.0-53.0) Mean Corpuscular Volume 97 fL (79-100) Mean Corpuscular Hemoglobin 33 pg (25-35) Mean Corpuscular Hemoglobin Concent 34 g/dL (31-37) Red Cell Distribution Width 14.5 % (11.5-14.5) Platelet Count 134 x10^3/uL (140-400) Neutrophils (%) (Auto) 79 % (31-73) Lymphocytes (%) (Auto) 11 % (24-48) Monocytes (%) (Auto) 9 % (0-9) Eosinophils (%) (Auto) 1 % (0-3) Basophils (%) (Auto) 0 % (0-3) Neutrophils # (Auto) 5.3 x10^3uL (1.8-7.7) Lymphocytes # (Auto) 0.8 x10^3/uL (1.0-4.8) Monocytes # (Auto) 0.6 x10^3/uL (0.0-1.1) Eosinophils # (Auto) 0.0 x10^3/uL (0.0-0.7) Basophils # (Auto) 0.0 x10^3/uL (0.0-0.2) Sodium Level 136 mmol/L (136-145) Potassium Level 4.2 mmol/L (3.5-5.1) Chloride Level 96 mmol/L (98-107) Carbon Dioxide Level 30 mmol/L (21-32) Anion Gap 10 (6-14) Blood Urea Nitrogen 40 mg/dL (8-26) Creatinine 8.9 mg/dL (0.7-1.3) Estimated GFR (Cockcroft-Gault) 7.7 Glucose Level 89 mg/dL (70-99) Calcium Level 7.4 mg/dL (8.5-10.1) Phosphorus Level 5.9 mg/dL (2.6-4.7) Albumin 3.3 g/dL (3.4-5.0) Comment Review of Relevant I have reviewed the following items jos (where applicable) has been applied. Labs Laboratory Tests Test 11/30/17 03:00 White Blood Count 6.8 x10^3/uL (4.0-11.0) Red Blood Count 3.68 x10^6/uL (4.30-5.70) Hemoglobin 12.1 g/dL (13.0-17.5) Hematocrit 35.7 % (39.0-53.0) Mean Corpuscular Volume 97 fL (79-100) Mean Corpuscular Hemoglobin 33 pg (25-35) Mean Corpuscular Hemoglobin Concent 34 g/dL (31-37) Red Cell Distribution Width 14.5 % (11.5-14.5) Platelet Count 134 x10^3/uL (140-400) Neutrophils (%) (Auto) 79 % (31-73) Lymphocytes (%) (Auto) 11 % (24-48) Monocytes (%) (Auto) 9 % (0-9) Eosinophils (%) (Auto) 1 % (0-3) Basophils (%) (Auto) 0 % (0-3) Neutrophils # (Auto) 5.3 x10^3uL (1.8-7.7) Lymphocytes # (Auto) 0.8 x10^3/uL (1.0-4.8) Monocytes # (Auto) 0.6 x10^3/uL (0.0-1.1) Eosinophils # (Auto) 0.0 x10^3/uL (0.0-0.7) Basophils # (Auto) 0.0 x10^3/uL (0.0-0.2) Sodium Level 136 mmol/L (136-145) Potassium Level 4.2 mmol/L (3.5-5.1) Chloride Level 96 mmol/L (98-107) Carbon Dioxide Level 30 mmol/L (21-32) Anion Gap 10 (6-14) Blood Urea Nitrogen 40 mg/dL (8-26) Creatinine 8.9 mg/dL (0.7-1.3) Estimated GFR (Cockcroft-Gault) 7.7 Glucose Level 89 mg/dL (70-99) Calcium Level 7.4 mg/dL (8.5-10.1) Phosphorus Level 5.9 mg/dL (2.6-4.7) Albumin 3.3 g/dL (3.4-5.0) Laboratory Tests Test 11/30/17 03:00 White Blood Count 6.8 x10^3/uL (4.0-11.0) Red Blood Count 3.68 x10^6/uL (4.30-5.70) Hemoglobin 12.1 g/dL (13.0-17.5) Hematocrit 35.7 % (39.0-53.0) Mean Corpuscular Volume 97 fL (79-100) Mean Corpuscular Hemoglobin 33 pg (25-35) Mean Corpuscular Hemoglobin Concent 34 g/dL (31-37) Red Cell Distribution Width 14.5 % (11.5-14.5) Platelet Count 134 x10^3/uL (140-400) Neutrophils (%) (Auto) 79 % (31-73) Lymphocytes (%) (Auto) 11 % (24-48) Monocytes (%) (Auto) 9 % (0-9) Eosinophils (%) (Auto) 1 % (0-3) Basophils (%) (Auto) 0 % (0-3) Neutrophils # (Auto) 5.3 x10^3uL (1.8-7.7) Lymphocytes # (Auto) 0.8 x10^3/uL (1.0-4.8) Monocytes # (Auto) 0.6 x10^3/uL (0.0-1.1) Eosinophils # (Auto) 0.0 x10^3/uL (0.0-0.7) Basophils # (Auto) 0.0 x10^3/uL (0.0-0.2) Sodium Level 136 mmol/L (136-145) Potassium Level 4.2 mmol/L (3.5-5.1) Chloride Level 96 mmol/L (98-107) Carbon Dioxide Level 30 mmol/L (21-32) Anion Gap 10 (6-14) Blood Urea Nitrogen 40 mg/dL (8-26) Creatinine 8.9 mg/dL (0.7-1.3) Estimated GFR (Cockcroft-Gault) 7.7 Glucose Level 89 mg/dL (70-99) Calcium Level 7.4 mg/dL (8.5-10.1) Phosphorus Level 5.9 mg/dL (2.6-4.7) Albumin 3.3 g/dL (3.4-5.0) Medications Current Medications Morphine Sulfate (Morphine Sulfate) 6 mg 1X ONCE IV Last administered on at 02:33; Start 11/28/17 at 02:45; Stop 11/28/17 at 02:50; Status DC Ondansetron HCl (Zofran) 4 mg 1X ONCE IV Last administered on 11/28/17at 02:38 ; Start 11/28/17 at 02:30; Stop 11/28/17 at 02:50; Status DC Morphine Sulfate (Morphine Sulfate) 10 mg STK-MED ONCE .ROUTE ; Start 11/28/17 at 02:32; Stop 11/28/17 at 02:33; Status DC Morphine Sulfate (Morphine Sulfate) 4 mg 1X ONCE IV Last administered on at 03:49; Start 11/28/17 at 03:45; Stop 11/28/17 at 03:46; Status DC Ondansetron HCl (Zofran) 4 mg PRN Q8HRS PRN IV NAUSEA/VOMITING; Start 11/28/17 at 05:00; Stop 11/29/17 at 04:59; Status DC Morphine Sulfate (Morphine Sulfate) 4 mg PRN Q2HR PRN IV PAIN Last administered on 11/28/17at 10:36; Start 11/28/17 at 05:00; Stop 11/29/17 at 04:59 ; Status DC Alprazolam (Xanax) 1 mg TID PO Last administered on 11/30/17at 08:12; Start 01/05 at 10:00 Calcium Acetate (Phoslo) 667 mg TIDWMEALS PO Last administered on 11/30/17at 08: 11; Start 11/28/17 at 12:00 Carvedilol (Coreg) 12.5 mg BIDWMEALS PO Last administered on 11/30/17at 08:13; Start 11/28/17 at 10:00 Diphenhydramine HCl (Benadryl) 25 mg PRN QHS PRN PO ITCHING; Start 11/28/17 at 09:15 Acetaminophen/ Hydrocodone Bitart (Lortab 5/325) 1 tab PRN Q4HRS PRN PO MODERATE PAIN Last administered on 11/29/17at 14:25; Start 11/28/17 at 09:15 Sevelamer Carbonate (Renvela) 2,400 mg TIDWMEALS PO Last administered on at 08:11; Start 11/28/17 at 12:00 Amlodipine Besylate (Norvasc) 2.5 mg DAILY PO Last administered on 11/28/17at 10 :12; Start 11/28/17 at 09:15 Cefazolin Sodium 50 ml @ 100 mls/hr 1X ONCE IV Last administered on at 12:47; Start 11/28/17 at 10:45; Stop 11/28/17 at 11:14; Status DC Lisinopril (Prinivil) 20 mg DAILY PO ; Start 11/28/17 at 11:30 Sodium Chloride 500 ml @ 0 mls/hr 1X PACU PRN IV SEE I/O RECORD Last administered on 11/28/17at 11:40; Start 11/28/17 at 11:30 Propofol 20 ml @ As Directed STK-MED ONCE IV ; Start 11/28/17 at 11:26; Stop 01/05 at 11:27; Status DC Fentanyl Citrate (Fentanyl 2ml Vial) 100 mcg STK-MED ONCE .ROUTE ; Start at 11:26; Stop 11/28/17 at 11:27; Status DC Midazolam HCl (Versed) 2 mg STK-MED ONCE .ROUTE ; Start 11/28/17 at 11:26; Stop 11/28/17 at 11:27; Status DC Cefazolin Sodium 1 gm/Dextrose 50 ml @ 100 mls/hr Q6H IV ; Start 11/28/17 at 12 :30; Stop 11/29/17 at 00:59; Status UNV Lidocaine HCl (Xylocaine 1% Pf 30ml Vial) 30 ml STK-MED ONCE .ROUTE ; Start 01/05 at 11:15; Stop 11/28/17 at 12:15; Status DC Bupivacaine HCl (Marcaine 0.5%) 50 ml STK-MED ONCE .ROUTE ; Start 11/28/17 at 11 :15; Stop 11/28/17 at 12:15; Status DC Cefazolin Sodium (Ancef) 1 gm Q6H IVP Last administered on 11/29/17at 07:52; Start 11/28/17 at 17:00; Stop 11/29/17 at 08:01; Status DC Dexamethasone Sodium Phosphate (Decadron) 20 mg STK-MED ONCE .ROUTE ; Start 01/05 at 12:58; Stop 11/28/17 at 12:59; Status DC Ondansetron HCl (Zofran) 4 mg STK-MED ONCE .ROUTE ; Start 11/28/17 at 12:58; Stop 11/28/17 at 12:59; Status DC Phenylephrine HCl (PHENYLEPHRINE in 0.9% NACL PF) 1 mg STK-MED ONCE IV ; Start 11/28/17 at 13:13; Stop 11/28/17 at 13:14; Status DC Bupivacaine HCl (Marcaine 0.5%) 50 ml STK-MED ONCE INJ Last administered on 01/05at 12:56; Start 11/28/17 at 12:56; Stop 11/28/17 at 13:27; Status DC Lidocaine HCl (Xylocaine 1% Pf 30ml Vial) 30 ml STK-MED ONCE INJ Last administered on 11/28/17at 12:56; Start 11/28/17 at 12:56; Stop 11/28/17 at 13:27 ; Status DC Sevoflurane (Ultane) 60 ml STK-MED ONCE IH ; Start 11/28/17 at 13:42; Stop 11/28 at 13:43; Status DC Sodium Chloride 1,000 ml @ 1,000 mls/hr Q1H PRN IV hypotension; Start 11/28/17 at 16:00; Stop 11/28/17 at 21:59; Status DC Diphenhydramine HCl (Benadryl) 25 mg 1X PRN PRN IV ITCHING; Start 11/28/17 at 16:00; Stop 11/29/17 at 15:59; Status DC Diphenhydramine HCl (Benadryl) 25 mg 1X PRN PRN IV ITCHING; Start 11/28/17 at 16:00; Stop 11/29/17 at 15:59; Status DC Sodium Chloride 1,000 ml @ 400 mls/hr Q2H30M PRN IV PATENCY; Start 11/28/17 at 16:00; Stop 11/29/17 at 03:59; Status DC Info (PHARMACY MONITORING -- do not chart) 1 each PRN DAILY PRN MC SEE COMMENTS ; Start 11/28/17 at 16:00 Ondansetron HCl (Zofran) 4 mg PRN Q6HRS PRN IV NAUSEA/VOMITING Last administered on 11/29/17at 15:41; Start 11/29/17 at 05:45 Morphine Sulfate (Morphine Sulfate) 4 mg PRN Q2HR PRN IV PAIN severe Last administered on 11/30/17at 06:33; Start 11/29/17 at 15:15 Sodium Chloride 1,000 ml @ 1,000 mls/hr Q1H PRN IV hypotension; Start 11/30/17 at 07:35; Stop 11/30/17 at 13:34; Status DC Acetaminophen (Tylenol) 500 mg 1X PRN PRN PO MILD PAIN / TEMP; Start 11/30/17 at 07:45; Stop 12/01/17 at 07:44 Diphenhydramine HCl (Benadryl) 25 mg 1X PRN PRN IV ITCHING Last administered on 11/30/17at 09:28; Start 11/30/17 at 07:45; Stop 12/01/17 at 07:44 Diphenhydramine HCl (Benadryl) 25 mg 1X PRN PRN IV ITCHING; Start 11/30/17 at 07:45; Stop 12/01/17 at 07:44 Sodium Chloride 1,000 ml @ 400 mls/hr Q2H30M PRN IV PATENCY; Start 11/30/17 at 07:35; Stop 11/30/17 at 19:34 Info (PHARMACY MONITORING -- do not chart) 1 each PRN DAILY PRN MC SEE COMMENTS ; Start 11/30/17 at 07:45 Lidocaine HCl (Xylocaine-Mpf 2% Vial) 0.5 ml 1X STAT ID Last administered on at 08:30; Start 11/30/17 at 08:41; Stop 11/30/17 at 08:48; Status DC Active Scripts Active Reported Aspir-Low (Aspirin) 81 Mg Tablet. 1 Tab PO DAILY Hydrocodone-Apap 5-325 (Hydrocodone Bit/Acetaminophen) 1 Each Tablet 1 Tab PO Q4HRS PRN Benadryl (Diphenhydramine Hcl) 25 Mg Capsule 1 Cap PO QHS PRN Renvela (Sevelamer Carbonate) 800 Mg Tablet 3 Tab PO TID Alprazolam 1 Mg Tablet 1 Tab PO TID Carvedilol 12.5 Mg Tablet 1 Tab PO BID Phoslo (Calcium Acetate) 667 Mg Capsule 667 Mg PO TIDWMEALS Nephro-Obdulia Rx Tablet (Vit B Cmplx 3/Fa/Vit C/Biotin) 1 Each Tablet 1 Each PO DAILY Vitals/I & O Vital Sign - Last 24 Hours 11/29/17 11/29/17 11/29/17 11/29/17 15:00 15:13 15:25 19:00 Temp 98.1 98.3 98.1 98.3 Pulse 78 79 Resp 18 22 16 18 B/P (MAP) 112/66 (81) 117/67 (84) Pulse Ox 98 O2 Delivery Room Air Room Air Room Air Room Air O2 Flow Rate 96.0 11/29/17 11/29/17 11/29/17 11/30/17 20:45 21:13 23:00 03:00 Temp 98.3 98.6 98.3 98.6 Pulse 79 83 Resp 18 18 18 B/P (MAP) 117/67 (84) 142/73 (96) Pulse Ox 96 96 O2 Delivery Room Air Room Air Room Air Room Air O2 Flow Rate 96.0 11/30/17 11/30/17 11/30/17 11/30/17 06:33 07:15 07:15 08:13 Temp 98.2 98.2 Pulse 78 78 Resp 20 18 20 B/P (MAP) 146/70 (95) 146/70 Pulse Ox 96 96 O2 Delivery Room Air Room Air Room Air Intake and Output 11/29/17 11/29/17 11/30/17 15:00 23:00 07:00 Intake Total 400 ml Output Total 100 ml Balance -100 ml 400 ml LISA BARRERA MD Nov 30, 2017 14:31
[2017-11-30] MEDS: ONDANSETRON PF 4 MG/2 ML VIAL. IV PRN (14:34)
[2017-11-30 15:00] VITALS: BP 174/89
--- NOTE | 2017-11-30 15:50 | PDOC3 ---
Discharge Summary Date of Admission: Nov 28, 2017 Date of Discharge: Nov 30, 2017 Follow-Up: 3-5 days Admitting Diagnosis comment: History of Present Illness History of Present Illness 52 year old male who presents with left knee injury. Closed transverse left patella fracture ORIF left patellar fracture JAMIE WELL piod # 2 intractable pain narcotics prn Vitals Vitals Vital Signs Date Time Temp Pulse Resp B/P (MAP) Pulse Ox O2 Delivery O2 Flow Rate FiO2 11/30/17 08:13 78 146/70 11/30/17 07:15 98.2 20 96 Room Air 98.2 11/29/17 20:45 96.0 Physical Exam Physical Exam HENT: Normocephalic, atraumatic Eyes: PERRLA, EOMI Neck: Normal range of motion, no tenderness, supple Cardiovascular:Heart rate regular rhythm, no murmur Lungs & Thorax: Bilateral breath sounds clear to auscultation Skin: Warm, dry, no erythema Back: No tenderness Extremities: Capillary refill < 2 seconds. Significant effusion , left knee. Ecchymosis. 2+ dp pulses in the dorsalis pedis and posterior tibial. Neurologic: Alert and oriented X 3 Psychologic: Affect normal General: Alert, Oriented X3, Cooperative, mild distress, moderate distress Heart: Regular rate, Normal S1, Normal S2 Lungs: Clear Abdomen: Normal bowel sounds, Soft Extremities: No cyanosis, Other (no edema, weak but palpable pulses bilaterally ) Skin: No rashes Brief Hospital Course Mr. Ohara is a 52 old [sex] who presented with [patellar fx ] CONDITION AT DISCHARGE: Improved Discharge Medications Current Medications Morphine Sulfate (Morphine Sulfate) 6 mg 1X ONCE IV Last administered on at 02:33; Start 11/28/17 at 02:45; Stop 11/28/17 at 02:50; Status DC Ondansetron HCl (Zofran) 4 mg 1X ONCE IV Last administered on 11/28/17at 02:38 ; Start 11/28/17 at 02:30; Stop 11/28/17 at 02:50; Status DC Morphine Sulfate (Morphine Sulfate) 10 mg STK-MED ONCE .ROUTE ; Start 11/28/17 at 02:32; Stop 11/28/17 at 02:33; Status DC Morphine Sulfate (Morphine Sulfate) 4 mg 1X ONCE IV Last administered on at 03:49; Start 11/28/17 at 03:45; Stop 11/28/17 at 03:46; Status DC Ondansetron HCl (Zofran) 4 mg PRN Q8HRS PRN IV NAUSEA/VOMITING; Start 11/28/17 at 05:00; Stop 11/29/17 at 04:59; Status DC Morphine Sulfate (Morphine Sulfate) 4 mg PRN Q2HR PRN IV PAIN Last administered on 11/28/17at 10:36; Start 11/28/17 at 05:00; Stop 11/29/17 at 04:59 ; Status DC Alprazolam (Xanax) 1 mg TID PO Last administered on 11/30/17 14:28; Start 01/05 at 10:00 Calcium Acetate (Phoslo) 667 mg TIDWMEALS PO Last administered on 11/30/17at 08: 11; Start 11/28/17 at 12:00 Carvedilol (Coreg) 12.5 mg BIDWMEALS PO Last administered on 11/30/17at 08:13; Start 11/28/17 at 10:00 Diphenhydramine HCl (Benadryl) 25 mg PRN QHS PRN PO ITCHING; Start 11/28/17 at 09:15 Acetaminophen/ Hydrocodone Bitart (Lortab 5/325) 1 tab PRN Q4HRS PRN PO MODERATE PAIN Last administered on 11/30/17at 14:28; Start 11/28/17 at 09:15 Sevelamer Carbonate (Renvela) 2,400 mg TIDWMEALS PO Last administered on at 14:29; Start 11/28/17 at 12:00 Amlodipine Besylate (Norvasc) 2.5 mg DAILY PO Last administered on 11/28/17at 10 :12; Start 11/28/17 at 09:15 Cefazolin Sodium 50 ml @ 100 mls/hr 1X ONCE IV Last administered on at 12:47; Start 11/28/17 at 10:45; Stop 11/28/17 at 11:14; Status DC Lisinopril (Prinivil) 20 mg DAILY PO ; Start 11/28/17 at 11:30 Sodium Chloride 500 ml @ 0 mls/hr 1X PACU PRN IV SEE I/O RECORD Last administered on 11/28/17at 11:40; Start 11/28/17 at 11:30 Propofol 20 ml @ As Directed STK-MED ONCE IV ; Start 11/28/17 at 11:26; Stop 01/05 at 11:27; Status DC Fentanyl Citrate (Fentanyl 2ml Vial) 100 mcg STK-MED ONCE .ROUTE ; Start at 11:26; Stop 11/28/17 at 11:27; Status DC Midazolam HCl (Versed) 2 mg STK-MED ONCE .ROUTE ; Start 11/28/17 at 11:26; Stop 11/28/17 at 11:27; Status DC Cefazolin Sodium 1 gm/Dextrose 50 ml @ 100 mls/hr Q6H IV ; Start 11/28/17 at 12 :30; Stop 11/29/17 at 00:59; Status UNV Lidocaine HCl (Xylocaine 1% Pf 30ml Vial) 30 ml STK-MED ONCE .ROUTE ; Start 01/05 at 11:15; Stop 11/28/17 at 12:15; Status DC Bupivacaine HCl (Marcaine 0.5%) 50 ml STK-MED ONCE .ROUTE ; Start 11/28/17 at 11 :15; Stop 11/28/17 at 12:15; Status DC Cefazolin Sodium (Ancef) 1 gm Q6H IVP Last administered on 11/29/17at 07:52; Start 11/28/17 at 17:00; Stop 11/29/17 at 08:01; Status DC Dexamethasone Sodium Phosphate (Decadron) 20 mg STK-MED ONCE .ROUTE ; Start 01/05 at 12:58; Stop 11/28/17 at 12:59; Status DC Ondansetron HCl (Zofran) 4 mg STK-MED ONCE .ROUTE ; Start 11/28/17 at 12:58; Stop 11/28/17 at 12:59; Status DC Phenylephrine HCl (PHENYLEPHRINE in 0.9% NACL PF) 1 mg STK-MED ONCE IV ; Start 11/28/17 at 13:13; Stop 11/28/17 at 13:14; Status DC Bupivacaine HCl (Marcaine 0.5%) 50 ml STK-MED ONCE INJ Last administered on 01/05at 12:56; Start 11/28/17 at 12:56; Stop 11/28/17 at 13:27; Status DC Lidocaine HCl (Xylocaine 1% Pf 30ml Vial) 30 ml STK-MED ONCE INJ Last administered on 11/28/17at 12:56; Start 11/28/17 at 12:56; Stop 11/28/17 at 13:27 ; Status DC Sevoflurane (Ultane) 60 ml STK-MED ONCE IH ; Start 11/28/17 at 13:42; Stop 11/28 at 13:43; Status DC Sodium Chloride 1,000 ml @ 1,000 mls/hr Q1H PRN IV hypotension; Start 11/28/17 at 16:00; Stop 11/28/17 at 21:59; Status DC Diphenhydramine HCl (Benadryl) 25 mg 1X PRN PRN IV ITCHING; Start 11/28/17 at 16:00; Stop 11/29/17 at 15:59; Status DC Diphenhydramine HCl (Benadryl) 25 mg 1X PRN PRN IV ITCHING; Start 11/28/17 at 16:00; Stop 11/29/17 at 15:59; Status DC Sodium Chloride 1,000 ml @ 400 mls/hr Q2H30M PRN IV PATENCY; Start 11/28/17 at 16:00; Stop 11/29/17 at 03:59; Status DC Info (PHARMACY MONITORING -- do not chart) 1 each PRN DAILY PRN MC SEE COMMENTS ; Start 11/28/17 at 16:00 Ondansetron HCl (Zofran) 4 mg PRN Q6HRS PRN IV NAUSEA/VOMITING Last administered on 11/30/17at 14:34; Start 11/29/17 at 05:45 Morphine Sulfate (Morphine Sulfate) 4 mg PRN Q2HR PRN IV PAIN severe Last administered on 11/30/17at 06:33; Start 11/29/17 at 15:15 Sodium Chloride 1,000 ml @ 1,000 mls/hr Q1H PRN IV hypotension; Start 11/30/17 at 07:35; Stop 11/30/17 at 13:34; Status DC Acetaminophen (Tylenol) 500 mg 1X PRN PRN PO MILD PAIN / TEMP; Start 11/30/17 at 07:45; Stop 12/01/17 at 07:44 Diphenhydramine HCl (Benadryl) 25 mg 1X PRN PRN IV ITCHING Last administered on 11/30/17at 09:28; Start 11/30/17 at 07:45; Stop 12/01/17 at 07:44 Diphenhydramine HCl (Benadryl) 25 mg 1X PRN PRN IV ITCHING; Start 11/30/17 at 07:45; Stop 12/01/17 at 07:44 Sodium Chloride 1,000 ml @ 400 mls/hr Q2H30M PRN IV PATENCY; Start 11/30/17 at 07:35; Stop 11/30/17 at 19:34 Info (PHARMACY MONITORING -- do not chart) 1 each PRN DAILY PRN MC SEE COMMENTS ; Start 11/30/17 at 07:45 Lidocaine HCl (Xylocaine-Mpf 2% Vial) 0.5 ml 1X STAT ID Last administered on at 08:30; Start 11/30/17 at 08:41; Stop 11/30/17 at 08:48; Status DC Active Scripts Active Reported Aspir-Low (Aspirin) 81 Mg Tablet.dr 1 Tab PO DAILY Hydrocodone-Apap 5-325 (Hydrocodone Bit/Acetaminophen) 1 Each Tablet 1 Tab PO Q4HRS PRN Benadryl (Diphenhydramine Hcl) 25 Mg Capsule 1 Cap PO QHS PRN Renvela (Sevelamer Carbonate) 800 Mg Tablet 3 Tab PO TID Alprazolam 1 Mg Tablet 1 Tab PO TID Carvedilol 12.5 Mg Tablet 1 Tab PO BID Phoslo (Calcium Acetate) 667 Mg Capsule 667 Mg PO TIDWMEALS Nephro-Obdulia Rx Tablet (Vit B Cmplx 3/Fa/Vit C/Biotin) 1 Each Tablet 1 Each PO DAILY Vital Signs Vital Signs Date Time Temp Pulse Resp B/P (MAP) Pulse Ox O2 Delivery O2 Flow Rate FiO2 11/30/17 15:00 98.5 78 20 174/89 (117) 96 Room Air 98.5 11/29/17 20:45 96.0 Labs Laboratory Tests Test 11/30/17 03:00 White Blood Count 6.8 x10^3/uL (4.0-11.0) Red Blood Count 3.68 x10^6/uL (4.30-5.70) Hemoglobin 12.1 g/dL (13.0-17.5) Hematocrit 35.7 % (39.0-53.0) Mean Corpuscular Volume 97 fL (79-100) Mean Corpuscular Hemoglobin 33 pg (25-35) Mean Corpuscular Hemoglobin Concent 34 g/dL (31-37) Red Cell Distribution Width 14.5 % (11.5-14.5) Platelet Count 134 x10^3/uL (140-400) Neutrophils (%) (Auto) 79 % (31-73) Lymphocytes (%) (Auto) 11 % (24-48) Monocytes (%) (Auto) 9 % (0-9) Eosinophils (%) (Auto) 1 % (0-3) Basophils (%) (Auto) 0 % (0-3) Neutrophils # (Auto) 5.3 x10^3uL (1.8-7.7) Lymphocytes # (Auto) 0.8 x10^3/uL (1.0-4.8) Monocytes # (Auto) 0.6 x10^3/uL (0.0-1.1) Eosinophils # (Auto) 0.0 x10^3/uL (0.0-0.7) Basophils # (Auto) 0.0 x10^3/uL (0.0-0.2) Sodium Level 136 mmol/L (136-145) Potassium Level 4.2 mmol/L (3.5-5.1) Chloride Level 96 mmol/L (98-107) Carbon Dioxide Level 30 mmol/L (21-32) Anion Gap 10 (6-14) Blood Urea Nitrogen 40 mg/dL (8-26) Creatinine 8.9 mg/dL (0.7-1.3) Estimated GFR (Cockcroft-Gault) 7.7 Glucose Level 89 mg/dL (70-99) Calcium Level 7.4 mg/dL (8.5-10.1) Phosphorus Level 5.9 mg/dL (2.6-4.7) Albumin 3.3 g/dL (3.4-5.0) Laboratory Tests Test 11/30/17 03:00 White Blood Count 6.8 x10^3/uL (4.0-11.0) Red Blood Count 3.68 x10^6/uL (4.30-5.70) Hemoglobin 12.1 g/dL (13.0-17.5) Hematocrit 35.7 % (39.0-53.0) Mean Corpuscular Volume 97 fL (79-100) Mean Corpuscular Hemoglobin 33 pg (25-35) Mean Corpuscular Hemoglobin Concent 34 g/dL (31-37) Red Cell Distribution Width 14.5 % (11.5-14.5) Platelet Count 134 x10^3/uL (140-400) Neutrophils (%) (Auto) 79 % (31-73) Lymphocytes (%) (Auto) 11 % (24-48) Monocytes (%) (Auto) 9 % (0-9) Eosinophils (%) (Auto) 1 % (0-3) Basophils (%) (Auto) 0 % (0-3) Neutrophils # (Auto) 5.3 x10^3uL (1.8-7.7) Lymphocytes # (Auto) 0.8 x10^3/uL (1.0-4.8) Monocytes # (Auto) 0.6 x10^3/uL (0.0-1.1) Eosinophils # (Auto) 0.0 x10^3/uL (0.0-0.7) Basophils # (Auto) 0.0 x10^3/uL (0.0-0.2) Sodium Level 136 mmol/L (136-145) Potassium Level 4.2 mmol/L (3.5-5.1) Chloride Level 96 mmol/L (98-107) Carbon Dioxide Level 30 mmol/L (21-32) Anion Gap 10 (6-14) Blood Urea Nitrogen 40 mg/dL (8-26) Creatinine 8.9 mg/dL (0.7-1.3) Estimated GFR (Cockcroft-Gault) 7.7 Glucose Level 89 mg/dL (70-99) Calcium Level 7.4 mg/dL (8.5-10.1) Phosphorus Level 5.9 mg/dL (2.6-4.7) Albumin 3.3 g/dL (3.4-5.0) Allergies Allergies Coded Allergies Type Severity Reaction Last Updated Verified Iodinated Contrast- Oral and IV Dye Allergy Intermediate skin burning Yes iodine Allergy Intermediate rash 11/16/17 Yes vancomycin Allergy Intermediate itching 02/03/17 Yes hydralazine Adverse Reaction Intermediate high bp shaking 02/03/17 Yes Disposition/Orders: D/C to Home Patient Instructions d/c planning 35 min LISA BARRERA MD Nov 30, 2017 15:50
--- NOTE | 2017-11-30 15:51 | DISCH ---
DISCHARGE INSTRUCTIONS Condition on Discharge Condition on Discharge: Stable Activity After Discharge Activity Instructions for Disc: Activity as tolerated, Progressive ambulation Driving Instructions after Dis: Do not drive Weight Bearing Status after Di: Touch down weight bearing Diet after Discharge Diet after Discharge: Renal Dialysis Checks after Discharge Checks after discharge: Check blood press - daily Contacting the DR. after DC Call your doctor for: If your condition worsens Treatment/Equipment after DC Adaptive Equipment Issued: None, Front wheeled walker LISA BARRERA MD Nov 30, 2017 15:51
[2017-11-30] MEDS ORDERED: LISI-130 PO (15:54)
[2017-11-30] MEDS ORDERED: AMLO2.5T3 PO (15:54)
== END 2017-11-30 17:00 | disposition home or self-care (01) | DRG 515 ==
LOC: ER 01:44 → 4 NORTH 04:45
PROVIDERS: ADMIT Internal Medicine; ATTEND Internal Medicine
PROC: 5A1D70Z Performance of Urinary Filtration, Intermittent, Less than 6 Hours Per Day (ICD-10-PCS; 2017-11-28)
PROC: 0QSF04Z Reposition Left Patella with Internal Fixation Device, Open Approach (ICD-10-PCS; principal; 2017-11-28 12:00)
PROC: 5A1D70Z Performance of Urinary Filtration, Intermittent, Less than 6 Hours Per Day (ICD-10-PCS; 2017-11-30)
DX: S82.042A Displaced comminuted fracture of left patella, initial encounter for closed fracture (principal); N18.6 End stage renal disease; I12.0 Hypertensive chronic kidney disease with stage 5 chronic kidney disease or end stage renal disease; D64.9 Anemia, unspecified; E03.9 Hypothyroidism, unspecified; E21.3 Hyperparathyroidism, unspecified; W01.0XXA Fall on same level from slipping, tripping and stumbling without subsequent striking against object, initial encounter; Z99.2 Dependence on renal dialysis; Z91.14 Patient's other noncompliance with medication regimen; Y93.89 Activity, other specified; Y92.89 Other specified places as the place of occurrence of the external cause; Y99.8 Other external cause status
CPT/HCPCS: 36415; 73130; 73562; 73700; 76000; 80048; 80069; 85025; 96374; 96375; 96376; A7015; C1713; J0690; J1100; J1200; J2001; J2250; J2270; J2370; J2405; J2704; J3010; J3490; J7030; J7040; 97116; 99285-25

== ENCOUNTER 2017-12-03 11:41 | Emergency (ER) | payer MEDICARE ==
[~2017-12-03] VITALS: Ht 165.1 cm; Wt 52.2 kg
[~2017-12-03 11:41] MED LIST changes: +AMLO2.5T3 PO; +ASPI81TA50 PO; +LISI-130 PO
[2017-12-03 11:50] VITALS: BP 160/77
[2017-12-03] MEDS ORDERED: HYDROcodone/APAP 5/325MG 1 TAB TABLET PO ONE (12:45)
[2017-12-03] MEDS ORDERED: HYDR-965 PO (13:22)
--- NOTE | 2017-12-03 13:22 | PHYS DOC ---
Past Medical History Past Medical History: Cancer, Hypertension, Renal Disease, Renal Failure Additional Past Medical Histor: LUPUS Past Surgical History: Cancer Surgery Additional Past Surgical Histo: DIALYSIS SHUNT RIGHT ARM Alcohol Use: None Drug Use: None Adult General Chief Complaint Chief Complaint: WOUND CHECK [facility] HPI Patient is a 52 year old male who presents with complaining of left knee pain and needs for checked. Patient state he had left patella surgery and was discharged home on November 30 and was not able to get his prescribed pain medication because pharmacy was not able to read prescription for [place] 7.5 mg. Patient also states he was expecting to have home health care for changing his dressing but nobody showed up. Patient states he did not change his dressing since was discharged 3 days ago. Patient denies fever and chills, nausea and vomiting, chest pain and shortness of breath. Patient rated his pain 8/10. Review of Systems Review of Systems Constitutional: Denies fever or chills [] Eyes: Denies change in visual acuity, redness, or eye pain [] HENT: Denies nasal congestion or sore throat [] Respiratory: Denies cough or shortness of breath [] Cardiovascular: No additional information not addressed in HPI [] GI: Denies abdominal pain, nausea, vomiting, bloody stools or diarrhea [] : Denies dysuria or hematuria [] Musculoskeletal: Denies back pain, reports joint pain [] Integument: Denies rash or skin lesions [] Neurologic: Denies headache, focal weakness or sensory changes [] Endocrine: Denies polyuria or polydipsia [] All other systems were reviewed and found to be within normal limits, except as documented in this note. Current Medications Current Medications Current Medications Medications (Trade) Dose Ordered Sig/Leslie Start Time Stop Time Status Last Admin Dose Admin Acetaminophen/ Hydrocodone Bitart (Lortab 5/325) 2 tab 1X ONCE 12/03/17 12:45 12/03/17 12:46 DC 12/03/17 12:54 2 TAB Allergies Allergies Allergies Coded Allergies Type Severity Reaction Last Updated Verified Iodinated Contrast- Oral and IV Dye Allergy Intermediate skin burning Yes iodine Allergy Intermediate rash 02/03/17 Yes vancomycin Allergy Intermediate itching 02/03/17 Yes hydralazine Adverse Reaction Intermediate high bp shaking 02/03/17 Yes Physical Exam Physical Exam Constitutional: Well developed, well nourished, mild distress, non-toxic appearance. [] HENT: Normocephalic, atraumatic. Eyes: PERRLA, EOMI, conjunctiva normal, no discharge. [] Neck: Normal range of motion, no tenderness, supple, no stridor. [] Cardiovascular:Heart rate regular rhythm, no murmur [] Lungs & Thorax: Bilateral breath sounds clear to auscultation [] Extremities: Left lower extremity with knee immobilizer and dressing in place, after dressing was removed patient had a clean surgical midline wound in left knee without sign of infection or abscess or drainage of pus. Neurologic: Alert and oriented X 3, normal motor function, normal sensory function, no focal deficits noted. [] Psychologic: Affect normal, judgement normal, mood normal. [] Current Patient Data Vital Signs Vital Signs Date Time Temp Pulse Resp B/P (MAP) Pulse Ox O2 Delivery O2 Flow Rate FiO2 12/03/17 12:54 18 12/03/17 11:50 98.7 81 160/77 (104) 98 Room Air 98.7 EKG EKG [] Radiology/Procedures Radiology/Procedures [] Course & Med Decision Making Course & Med Decision Making Evaluation of patient in ER showed 52-year-old male patient presented to ER for wound check. Patient had a recent tetanus surgery and did not have home healthcare for changing dressing. Wound was clean and dry and dressing was change in ER. Patient did not have pain medication and had a new prescription for hydrocodone 7.5 mg #20. We tried to contact Dr. Jalen Lerma his primary care physician for possible providing home healthcare but he did not call back. Patient instructed to call his primary care physician on Tuesday for possible home health care and physical therapy. Dragon Disclaimer Dragon Disclaimer This electronic medical record was generated, in whole or in part, using a voice recognition dictation system. Departure Departure Impression: Primary Impression: Encounter for postoperative wound check Additional Impression: Medication refill Disposition: HOME, SELF-CARE (@[id number]) Condition: IMPROVED Referrals: JALEN LERMA MD (PCP) Patient Instructions: Sutured Wound Care, Wound Care, [id number] Additional Instructions: Follow-up with your primary care physician in 2 days for possible providing home healthcare and physical therapy at home Return to ER if not getting better Scripts Hydrocodone/Apap 7.5-325 (NORCO 7.5-325 TABLET) 1 Each Tablet 1 TAB PO PRN Q6HRS PRN for PAIN, #20 TAB 0 Refills Prov: ABDIAS HOLLIS MD 12/03/17 Problem Qualifiers ABDIAS HOLLIS MD Dec 03, 2017 13:22
== END 2017-12-03 13:46 | disposition home or self-care (01) ==
LOC: ER 11:41
DX: G89.18 Other acute postprocedural pain (principal); M25.562 Pain in left knee; Z76.0 Encounter for issue of repeat prescription; I12.9 Hypertensive chronic kidney disease with stage 1 through stage 4 chronic kidney disease, or unspecified chronic kidney disease; N18.9 Chronic kidney disease, unspecified; M32.9 Systemic lupus erythematosus, unspecified; Z98.890 Other specified postprocedural states; Z99.2 Dependence on renal dialysis; Z88.8 Allergy status to other drugs, medicaments and biological substances; Z88.1 Allergy status to other antibiotic agents; Z91.041 Radiographic dye allergy status
CPT/HCPCS: 99283; 99284